=== PATIENT | male | born 1980 | race Caucasian/White ===

== ENCOUNTER 2024-05-22 23:17 | Inpatient (IN) | payer OTHER, SELFPAY ==
[2024-05-22 23:18] VITALS: BP 112/84; PULSE 106; RESP 18; TEMP 36.7; O2SAT 98; BMI 24.6
--- NOTE | 2024-05-22 23:47 | EX.ED.SAOD ---
HPI History of Present Illness Chief Complaint: ETOH Intox Informant: patient Narrative Narrative: Patient is a 43-year-old male with history of alcohol abuse and DTs presenting for concern of alcohol withdrawal. Patient has been drinking for the last few weeks (mostly beer) and lives in [place]. He is appear visiting his parents and will not be drinking why is here. He is concerned that he will going to alcohol withdrawal. He is interested in detox. He states he had 5 alcoholic beverages on the plane today on his way out. Has previously been in detox with [facility] before. I denies any physical complaints at this time. Does not feel like he is withdrawing right now but is worried that if he does not drink over the next day or 2 he will have a seizure. [facility] Medical History Former tobacco use Anxiety and depression History of seizure Pancreatitis Hypertension Home Medications ?Medication ?Instructions ?Recorded ?Last Taken ?Type ibuprofen 200 mg tablet (Advil) 200 mg PO Q6H PRN pain 11/14/22 Unknown History metoprolol succinate 25 mg 25 mg PO DAILY 11/14/22 Unknown History tablet,extended release 24 hr trazodone 50 mg tablet 50 mg PO DAILY 11/14/22 Unknown History melatonin 5 mg capsule mg 05/22/24 Unknown History sertraline 100 mg tablet 200 mg PO DAILY 05/22/24 Unknown History Allergy/AdvReac Type Severity Reaction Status Date / Time No Known Allergies Allergy Verified 05/22/24 23:24 Social History Smoking Status: Former smoker ROS ROS ED Constitutional Constitutional ED: Denies chills or fever(s) Eyes Eyes: Denies change in vision Cardiovascular Cardiovascular: Denies chest pain Respiratory/Chest Respiratory/Chest: Denies cough or dyspnea Gastrointestinal Gastrointestinal: Denies nausea or vomiting Musculoskeletal Musculoskeletal: Denies arthralgias or myalgias Neurologic Neurologic: Denies weakness Psychiatric Psychiatric: Reports other Details: Alcohol abuse ; Denies anxiety or depression EXAM Physical Exam Const Vital Signs: 05/22/24 23:18 05/23/24 00:18 05/23/24 00:54 Temperature 98.0 F 97.2 F L Temperature Source Temporal Pulse Rate 106 H 100 100 Respiratory Rate 18 16 Blood Pressure 112/84 H 115/72 Blood Pressure Mean 93 86 Pulse Ox 98 98 Oxygen Delivery Method Room Air Positive well nourished and well developed General Appearance ED: well developed and NAD HEENT Reports moist mucous membranes Eyes EOMs intact bilaterally Neck supple Chest Wall inspection of chest normal Resp normal respiratory effort Cardio Rate: tachycardic Extremity General Extremety ED: Negative for edema General Extremity: Negative for edema Neuro oriented x3 Sensorium / Orientation: alert Motor Exam: Negative for general weakness Psych mental status grossly normal and thought process normal Skin General Skin Exam: Negative for jaundice MDM MDM MDM Narrative Medical decision making narrative: Patient is evaluated for request of alcohol detox. Patient states he would not be drinking lives in [place] and is worried if he does not drink going alcohol withdrawal. Patient is counseled that his options are he can continue drinking he is not truly interested in detox or we can admit him for inpatient medical detox of alcohol. Patient states that he would like to proceed with detox. I will obtain medical screening labs. At this time I do not think patient is in acute alcohol withdrawal as he was drinking earlier today and has normal blood pressure and I do not think he needs any medication for withdrawal at this time. Lab work consistent with acute alcohol intoxication as well as positive benzodiazepine on his talk screen. Will be admitted to the hospital service, case discussed with Dr. Reid. Lab Data Labs: Laboratory Results - last 24 hr 05/23/24 00:16 Sodium 143 Potassium 3.6 Chloride 109 H Carbon Dioxide 27.0 Anion Gap 7 BUN 10 Creatinine 1.12 Estim Creat Clear Calc 91.42 Est GFR (MDRD) Af Amer 91 Est GFR (MDRD) Non-Af 75 BUN/Creatinine Ratio 8.9 L Glucose 93 Calcium 8.8 Total Bilirubin 0.40 AST 28 ALT 25 Alkaline Phosphatase 47 Total Protein 8.0 Albumin 4.6 Globulin 3.4 Albumin/Globulin Ratio 1.4 Urine Opiates Screen NEGATIVE Urine Methadone Screen NEGATIVE Ur Barbiturates Screen NEGATIVE Ur Phencyclidine Scrn NEGATIVE Ur Amphetamines Screen NEGATIVE MDMA (Ecstasy) Screen NEGATIVE U Benzodiazepines Scrn POSITIVE H Urine Cocaine Screen NEGATIVE U Cannabinoids Screen NEGATIVE Ur Drug Screen Comment Ethyl Alcohol 285.0 Discharge Plan Triage Chief Complaint: ETOH Intox ED Provider: Fani Hancock Dx/Rx/DC Orders Clinical Impression: Alcohol dependence with acute alcoholic intoxication Prescriptions: No Action metoprolol succinate 25 mg tablet extended release 24 hr 25 mg PO DAILY trazodone 50 mg tablet 50 mg PO DAILY ibuprofen [Advil] 200 mg tablet 200 mg PO Q6H PRN (Reason: pain) sertraline 100 mg tablet 200 mg PO DAILY melatonin 5 mg capsule Primary Care Provider: GARRETT DARDEN Referrals: NOT,DEFINED [Non-Staff] - Print Language: Yakut Disposition Disposition: Acute Care Hospital [facility]
[2024-05-23] VITALS (11 sets, daily range): BP systolic 98–149; BP diastolic 60–99; PULSE 72–100; RESP 16–18; TEMP 36.2–37; O2SAT 95–100; BMI 24.7
[2024-05-23 00:43] LABS: Amphetamine Urine VISTA NEGATIVE (<1000 ng/mL); Barbiturate Urine VISTA NEGATIVE (< 200 ng/mL); Benzodiazepine Urine VISTA POSITIVE (< 200 ng/mL); Cocaine Urine VISTA NEGATIVE (< 300 ng/mL); Ecstacy Urine VISTA NEGATIVE (< 500 ng/mL); Methadone Urine VISTA NEGATIVE (< 300 ng/mL); PCP Urine VISTA NEGATIVE (< 25 ng/mL); THC Urine VISTA NEGATIVE (< 50 ng/mL); Vista UDS pH Range 5
[2024-05-23 00:49] LABS: ALB/GLOB Ratio 1.4 RATIO (0.9-2.4); AST(SGOT) 28 U/L (15-37); Alanine Aminotransfer ALT/SGPT 25 U/L (16-61); Albumin, Serum 4.6 g/dL (3.2-5.0); Alkaline Phosphatase 47 U/L (45-117); Anion Gap 7 (5-15); BUN 10 mg/dL (7-18); BUN/Creat Ratio 8.9 RATIO (10-20); Calcium,Total 8.8 mg/dL (8.5-10.1); Chloride 109 mmol/L (98-107); Creatinine, Serum 1.12 mg/dL (0.70-1.30); EST Glomerular Filtration Rate 75 mL/min (>60); Est Glom Filt Rate - Afr Amer 91 mL/min (>60); Estimated Creatinine Clearance 91.42 ml/min; Globulin 3.4 g/dL (2.2-4.2); Glucose 93 mg/dL (74-106); Potassium 3.6 mmol/L (3.5-5.1); Sodium Level 143 mmol/L (136-145)
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
[2024-05-23 00:58] LABS: Absolute Lymphocyte Count 2.26 X10^3/uL (0.83-4.51); Absolute Neutrophil Count 2.7 X10^3/uL (2.0-7.7); Basophil# 0.03 X10^3/uL; Basophil% 0.5 % (0-1); Eosinophil# 0.09 X10^3/uL; Eosinophils% 1.6 % (0-5); Hematocrit 39.5 % (40-54); Hemoglobin 13.4 g/dL (13.0-16.5); Lymphocyte # 2.26 X10^3/ul (0.83-4.51); Lymphocyte % 41.2 % (19-41); Mean Corp Hgb Conc 33.9 g/dL (32-36); Mean Corpuscular Volume 88.4 fL (80-94); Mean Platelet Vol. 9.7 fl (6.2-12.0); Monocyte# 0.41 X10^3/uL; Monocyte% 7.5 % (0-10); NRBC Flagged by Analyzer 0 % (0-5); Neutrophil # 2.68 X10^3/uL (2.7-7.7); Neutrophil % 48.8 % (47-70); Platelet Count 187 K/mm3 (150-450); RBC Distribution Width CV 14.9 % (11.6-14.6); RBC Distribution Width SD 48.5 fl (35.1-43.9); Red Blood Count 4.47 M/mm3 (4.6-6.2); White Blood Count 5.5 K/mm3 (4.4-11.0)
[2024-05-23 01:23] LABS: Magnesium 2.3 mg/dL (1.6-2.6); Phosphorus 2.9 mg/dL (2.5-4.9)
[2024-05-23] MEDS: Lactated Ringers 1,000 ML 125 ML IV (02:00)
[2024-05-23] MEDS: Ondansetron 8 MG Tablet PO (02:00)
[2024-05-23] MEDS: traZODone 100 MG Tablet PO ×2 (02:00→20:41)
[2024-05-23] MEDS: Phenobarbital 32.4 MG Tablet 64.8 MG PO ×6 (02:00→20:46)
[2024-05-23] MEDS: 0.9% Saline Lock 10 ML Syringe IV (02:00)
[2024-05-23] MEDS: hydrOXYzine PAM 25 MG Capsule 50 MG PO ×3 (02:08→20:46)
[2024-05-23] MEDS: Folic Acid 1 MG Tablet PO (08:23)
[2024-05-23] MEDS: Thiamine Hydrochloride 100 MG Tablet PO (08:23)
--- NOTE | 2024-05-23 08:32 | NURSING ---
called family and asked them if they could bring in his non formulary med.
[2024-05-23] MEDS: Sertraline 100 MG Tablet 200 MG PO (08:35)
--- NOTE | 2024-05-23 11:52 | ADDICTION ---
This software writer met with PT to conduct ASAM, MSE, AUDIT, DUDIT assessments and to plan for d/c. PT A+Ox4 and participated actively. All assessments completed. PT plans to f/u with follow-up treatment services at [facility], however he plans to go collect his things in [place] upon d/c. This worker discussedv with pt the option of Vivitrol to help with cravings while he is transitioning from [place] to [place].Pt is interested and meets criteria for the shot. PT did not indicate a need for transportation post d/c from [facility].
--- NOTE | 2024-05-23 18:19 | PCM.HOSP.N ---
Hospitalist Note Patient was seen and examined today, he is alert and appropriate, he does not appear anxious or nervous. We talked about the program here, he questions whether he could possibly be discharged this weekend if he remains medically stable and I told him that was a possibility. He has been to [facility] before, he told me today that he would prefer to do an outpatient program. Patient denies any chronic medical problems, heart rate and rhythm was regular, lungs were clear, again patient was alert and oriented and appropriate.
[2024-05-23] MEDS: Metoprolol(XL)Succ 25 MG Tablet PO (20:41)
[2024-05-23] MEDS: PIMOZIDE 1 MG PO (20:42)
[2024-05-24] MEDS: hydrOXYzine PAM 25 MG Capsule 50 MG PO ×4 (01:33→22:15)
[2024-05-24] MEDS: Phenobarbital 32.4 MG Tablet 64.8 MG PO ×3 (01:33→10:03)
[2024-05-24 01:37] VITALS: BP 134/93; PULSE 64; RESP 16; TEMP 36.4; O2SAT 100
[2024-05-24 07:45] VITALS: O2SAT 94
[2024-05-24 08:59] VITALS: BP 119/83; PULSE 72; RESP 18; TEMP 36.4; O2SAT 98
[2024-05-24 09:03] VITALS: PULSE 72
[2024-05-24] MEDS: Thiamine Hydrochloride 100 MG Tablet PO (09:04)
[2024-05-24] MEDS: Sertraline 100 MG Tablet 200 MG PO (09:04)
[2024-05-24] MEDS: Folic Acid 1 MG Tablet PO (09:04)
[2024-05-24] MEDS: Multivitamins,Ther W-Minerals Tablet 1 TABLET PO (09:04)
[2024-05-24] MEDS: Phenobarbital 32.4 MG Tablet PO ×3 (14:00→22:07)
[2024-05-24 15:11] VITALS: BP 140/98; PULSE 81; RESP 18; TEMP 37.1; O2SAT 100
--- NOTE | 2024-05-24 15:25 | PCM.PN.HOSP ---
Subjective Subjective Patient was seen and examined today, he does not complain of any nervousness or tremor. I talked with him about decreasing his dose of phenobarbital, he is okay with this. Objective Data Objective Data Vital Signs: Vital Signs Temp Pulse Resp BP Pulse Ox O2 Del Method 98.7 F 81 18 140/98 H 100 Room Air 05/24/24 15:11 05/24/24 15:11 05/24/24 15:11 05/24/24 15:11 05/24/24 15:11 05/24/24 15:11 Oxygen Delivery Method Room Air Weight: 82.6 kg Body Mass Index (BMI) 24.7 Intake & Output: Intake and Output for Last 24 Hours 05/22/24 05/23/24 05/24/24 23:59 23:59 23:59 Intake Total 1000 / 1000 Balance 1000 / 1000 Lab / Micro Data 05/23/24 00:16 05/23/24 00:16 Physical Exam Const alert, oriented x3, no apparent distress, average body habitus and healthy appearing General Appearance: cooperative, well kempt and well developed Orientation / Consciousness: awake, oriented to person, oriented to place and oriented to time HEENT normocephalic and moist oral mucous membranes Eyes PERRL, EOMs intact bilaterally and conjunctivae normal Neck supple, no JVD, thyroid normal and no carotid bruits General: trachea midline Resp normal respiratory effort, no retractions, no use of accessory muscles and clear to auscultation bilaterally Auscultation: Negative for rales, rhonchi or wheezes Cardio regular rate, regular rhythm, S1 normal heart sound, S2 normal heart sound, no murmurs, no rub and no gallops GI normal to inspection, nondistended, normoactive bowel sounds, soft to palpation, non-tender and non-distended Extremity no clubbing, cyanosis or edema Skin no rashes or lesions noted General Skin Exam: no breakdown Neuro oriented x3, CN's II-XII intact bilaterally, no focal motor deficits and no sensory deficits noted Sensorium / Orientation: awake and alert Speech: speech normal Psych affect normal Assessment & Plan Assessment/Plan (1) Alcohol dependence with acute alcoholic intoxication: PLAN: Plan 1. Acute alcohol withdrawal-patient has asymptomatic at this time on phenobarbital, again I have elected to decrease his phenobarbital dosage. #2 chronic alcoholism-complicates care, management, recovery, and prognosis #3 chronic anxiety and depression-patient will continue on his present medication #4 essential hypertension-patient will remain on metoprolol #5 OCD-patient according to nursing is not a medication called pimozide Total clinical time spent by myself addressing the patient's medical issues, reviewing all of his data, and collaborating with patient's care team: 35 minutes Charges/Coding Visit Charges Inpatient E&M: 84289 Subs Hosp L2
[2024-05-24 20:35] VITALS: BP 136/99; PULSE 76; RESP 18; TEMP 37.2; O2SAT 100
[2024-05-24] MEDS: Gabapentin 300 MG Capsule PO (20:41)
[2024-05-24] MEDS: PIMOZIDE 1 MG PO (22:07)
[2024-05-24] MEDS: traZODone 100 MG Tablet PO (22:08)
[2024-05-25 04:40] VITALS: BP 121/79; PULSE 67; RESP 18; TEMP 36.9; O2SAT 99
[2024-05-25 10:00] VITALS: BP 127/90; PULSE 71; RESP 16; TEMP 36.6; O2SAT 100
[2024-05-25] MEDS: Phenobarbital 32.4 MG Tablet PO ×2 (10:14→13:41)
[2024-05-25 10:15] VITALS: BP 127/90; PULSE 71
[2024-05-25] MEDS: Sertraline 100 MG Tablet 200 MG PO (10:15)
[2024-05-25] MEDS: Metoprolol(XL)Succ 25 MG Tablet PO (10:15)
[2024-05-25] MEDS: Multivitamins,Ther W-Minerals Tablet 1 TABLET PO (10:15)
[2024-05-25] MEDS: Thiamine Hydrochloride 100 MG Tablet PO (10:16)
[2024-05-25] MEDS: Folic Acid 1 MG Tablet PO (10:16)
--- NOTE | 2024-05-25 10:16 | DCINST_ITS ---
Discharge Instructions Diet Discharge Diet: No restrictions Activity Discharge Activity: Return to Normal Activity Weight Bearing Status: Full weight bearing Follow Up Care Test Results: Test results from this visit will be discussed in further detail at your follow- up appointment, if applicable. Discharge Plan Admission Admit Date/Time: 05/23/24 00:51 Primary Reason for Your Visit: Alcohol detox Attending Provider: Norbert Sandoval Primary Care Provider: GARRETT DARDEN Consulting Providers: Kitty Reid Instructions Additional Instructions / Restrictions: Contact [facility] on 05/27/2024 for follow-up instructions Discharge Orders/Prescriptions Prescriptions: New hydroxyzine pamoate 25 mg Capsule 50 mg PO Q4H PRN PRN (Reason: mild anxiety) Qty: 30 0RF phenobarbital 32.4 mg Tablet 32.4 mg PO 2XD Qty: 4 0RF Continued metoprolol succinate 25 mg tablet extended release 24 hr 25 mg PO DAILY trazodone 50 mg tablet 50 mg PO DAILY ibuprofen [Advil] 200 mg tablet 200 mg PO Q6H PRN (Reason: pain) sertraline 100 mg tablet 200 mg PO DAILY melatonin 5 mg capsule 5 mg PO QHS meclizine 25 mg tablet 25 mg PO TID PRN PRN (Reason: vertigo) Zepbound 10 mg/0.5 mL pen injector 10 mg subcut QWEEK pimozide 1 mg tablet 1 mg PO QHS Referrals / Follow Up: GARRETT DARDEN [Other] NOT,DEFINED [Non-Staff] - Disposition Disposition (needs filled in before D/C Order can be placed): Home, Self Care
--- NOTE | 2024-05-25 10:26 | PCM.DC.SUM ---
Providers Date of Admission: 05/23/24 Date of Discharge: 05/25/24 Primary Care Physician: GARRETT DARDEN Reason For Visit: ETOH DETOX Diagnosis Discharge Diagnosis (1) Alcohol dependence with acute alcoholic intoxication: Status: Acute Code(s): F10.229 - Alcohol dependence with intoxication, unspecified Plan 1. Acute alcohol withdrawal-patient has asymptomatic at this time on phenobarbital, again I have elected to decrease his phenobarbital dosage. #2 chronic alcoholism-complicates care, management, recovery, and prognosis #3 chronic anxiety and depression-patient will continue on his present medication #4 essential hypertension-patient will remain on metoprolol #5 OCD-patient according to nursing is not a medication called pimozide Total clinical time spent by myself addressing the patient's medical issues, reviewing all of his data, and collaborating with patient's care team: 35 minutes Medications at Discharge Home Medications ibuprofen 200 mg tablet (Advil) 200 mg PO Q6H PRN pain 11/14/22 metoprolol succinate 25 mg tablet,extended release 24 hr 25 mg PO DAILY 11/14/22 trazodone 50 mg tablet 50 mg PO DAILY 11/14/22 melatonin 5 mg capsule 5 mg PO QHS sleep 05/22/24 sertraline 100 mg tablet 200 mg PO DAILY 05/22/24 meclizine 25 mg tablet 25 mg PO TID PRN PRN vertigo 05/23/24 pimozide 1 mg tablet 1 mg PO QHS ocd 05/23/24 tirzepatide (weight loss) 10 mg/0.5 mL subcutaneous pen injector (Zepbound) 10 mg subcut QWEEK weight loss 05/23/24 hydroxyzine pamoate 25 mg capsule 50 mg (2 x 25 mg) PO Q4H PRN PRN mild anxiety #30 caps 05/25/24 phenobarbital 32.4 mg tablet 32.4 mg PO 2XD #4 tabs 05/25/24 Hospital Course Operations None Procedures None Summary of Care Provided Minutes Spent on Discharge: 30 Hospital Course: This 43-year-old white male was seen in the emergency room at [facility] requesting services for alcohol detox, patient was admitted to [place] [address] and orders were entered using the alcohol detox order set, he was seen in consultation by addiction social media community manager. Patient did not have any evidence of DTs while in the hospital. On 05/25/2024, patient was seen and examined: On examination he appeared in good health and spirits. Vital signs as documented. Skin warm and dry and without overt rashes. Neck without JVD, neck was supple, trachea midline, thyroid was normal. Lungs clear bilaterally, normal air movement was noted. Heart exam notable for regular rhythm, normal sounds and absence of murmurs, rubs or gallops. Abdomen unremarkable and without evidence of organomegaly, masses, or abdominal aortic enlargement. Bowel sounds are present, abdomen is not distended. Extremities nonedematous, no cyanosis was noted, no clubbing was noted. Neuro: Cranial nerves II through XII are grossly intact, no focal motor deficits were noted, sensation to light touch and pinprick intact, motor exam 5/5 throughout. Psych: Patient is alert and oriented x3, he does not appear anxious or depressed, he does not appear agitated. Patient appears stable for discharge home on 05/25/2024. Weight / BMI Weight Weight: 82.6 kg Body Mass Index (BMI) 24.7 ABG / Lab / Microbiology Data 05/23/24 00:16 05/23/24 00:16 D/C Instructions Discharge Diet: No restrictions Weight Bearing Status: Full weight bearing Meaningful Use Info Meaningful Use Meaningful Use Diagnoses (Choose all that apply): None applicable Ischemic Stroke Statin Dosing Therapy Reference: STATIN DOSE THERAPY REFERENCE: * Patients > 75 years receive moderate or high dose statin therapy. * Patients 75 years or YOUNGER should receive HIGH intensity statin dose unless contraindicated. You will be required to document reason for non-treatment if statin daily dose does not meet guidelines. HIGH DOSE STATIN THERAPY DAILY Atorvastatin > than or = to 40 mg Rosuvastatin > than or = to 20 mg Amlodipine + Atorvastatin > than or = to 2.5/40 mg Ezetimibe + Simvastatin 10/80 mg Simvastatin 80mg Discharge Plan Admission Admit Date/Time: 05/23/24 00:51 Primary Reason for Your Visit: Alcohol detox Attending Provider: Norbert Sandoval Primary Care Provider: GARRETT DARDEN Consulting Providers: Kitty Reid Instructions Additional Instructions / Restrictions: Contact [facility] on 05/27/2024 for follow-up instructions Discharge Orders/Prescriptions Prescriptions: New hydroxyzine pamoate 25 mg Capsule 50 mg PO Q4H PRN PRN (Reason: mild anxiety) Qty: 30 0RF phenobarbital 32.4 mg Tablet 32.4 mg PO 2XD Qty: 4 0RF Continued metoprolol succinate 25 mg tablet extended release 24 hr 25 mg PO DAILY trazodone 50 mg tablet 50 mg PO DAILY ibuprofen [Advil] 200 mg tablet 200 mg PO Q6H PRN (Reason: pain) sertraline 100 mg tablet 200 mg PO DAILY melatonin 5 mg capsule 5 mg PO QHS meclizine 25 mg tablet 25 mg PO TID PRN PRN (Reason: vertigo) Zepbound 10 mg/0.5 mL pen injector 10 mg subcut QWEEK pimozide 1 mg tablet 1 mg PO QHS Referrals / Follow Up: GARRETT DARDEN [Other] NOT,DEFINED [Non-Staff] - Disposition Disposition (needs filled in before D/C Order can be placed): Home, Self Care Charges/Coding Visit Charges Inpatient E&M: 68643 Disch Hosp
[2024-05-25] MEDS: hydrOXYzine PAM 25 MG Capsule 50 MG PO (10:33)
[2024-05-25] MEDS: Naltrexone Microspheres 380 MG SYRINGE IM (13:04)
[2024-05-25] MEDS: Vivitrol ID Card 1 EACH MC (13:09)
[2024-05-25] MEDS: Vivitrol Administration Needles 1 EACH MC (13:09)
== END 2024-05-25 13:53 | disposition home or self-care (01) | DRG 897 ==
LOC: ED 05-23 00:56 → MS3 05-23 01:06
PROVIDERS: Admitting Provider Family Medicine; Emergency Provider Emergency Medicine; Visit Provider Internal Medicine
DX: F10.239 Alcohol dependence with withdrawal, unspecified (principal); F32.A Depression, unspecified; I10 Essential (primary) hypertension; F41.9 Anxiety disorder, unspecified; Z87.891 Personal history of nicotine dependence; Z79.899 Other long term (current) drug therapy; Y90.8 Blood alcohol level of 240 mg/100 ml or more
CPT/HCPCS: 80053; 80307; 82077; 83735; 84100; 85025; 99284; J7120; A4216

== ENCOUNTER 2025-08-30 15:05 | Observation (INO) | payer OTHER, SELFPAY ==
[2025-08-30 15:06] VITALS: BP 142/97; PULSE 106; RESP 18; TEMP 37.2; O2SAT 100; BMI 22.4
[2025-08-30 15:34] LABS: Hematocrit 39.1 % (40-54); Hemoglobin 12.9 g/dL (13.0-16.5); Immature Granulocytes Count 0.020 X10^3/uL (0.0-0.0); Mean Corp Hgb Conc 33.0 g/dL (32-36); Mean Corpuscular Volume 92.2 fL (80-94); Mean Platelet Vol. 9.3 fl (6.2-12.0); NRBC Flagged by Analyzer 0 % (0-5); Platelet Count 241 K/mm3 (150-450); RBC Distribution Width CV 15.0 % (11.6-14.6); RBC Distribution Width SD 50.7 fl (35.1-43.9); Red Blood Count 4.24 M/mm3 (4.6-6.2); White Blood Count 7.3 K/mm3 (4.4-11.0)
[2025-08-30 15:41] LABS: Prothrombin Time (Protime)PT. 13.1 SECONDS (11.7-14.9)
[2025-08-30 16:06] VITALS: BP 136/65; PULSE 93; RESP 22; O2SAT 100
--- NOTE | 2025-08-30 16:09 | EDS_ITS ---
HPI History of Present Illness Chief Complaint: ETOH Intox Narrative Narrative: 44-year-old male states he is an alcoholic and presents for detox. He relates history that he has been through the detox program here at the hospital a few years ago. He currently lives in [place], but states he is visiting his parents here. He went through detox around 5 months ago there and had 4 months of sobriety, but broke up with his girlfriend and started drinking again. He drinks at least a pint of vodka daily. His last drink was last evening. He has been drinking daily for the last few weeks to a month and a half. He has past medical history of other addiction for which he takes Suboxone. He does have past medical history of anxiety. He states he feels shaky. He has had diarrhea. [facility] Medical History Alcohol dependence with acute alcoholic intoxication Admitted to alcohol detoxification center Former tobacco use Anxiety and depression History of seizure Pancreatitis Hypertension Home Medications Medication Instructions Recorded Last Taken Type ibuprofen 200 mg tablet (Advil) 200 mg PO Q6H PRN pain 11/14/22 Unknown History melatonin 5 mg capsule 5 mg PO QHS sleep 05/22/24 U nknown History buprenorphine 8 mg-naloxone 2 mg 1 ea sublingual DAILY 08/30/25 Unknown History sublingual film buspirone 15 mg tablet 30 mg PO BID 08/30/25 Unknow n History chlordiazepoxide HCl 5 mg capsule PO 08/30/25 Unknown History gabapentin 300 mg capsule 600 mg PO TID 08/30/25 Unkno wn History hydroxyzine pamoate 25 mg capsule 50 mg PO QHS PRN mil d anxiety 08/30/25 Unknown History pimozide 2 mg tablet 2 mg PO QHS 08/30/25 Unknown History quetiapine 50 mg tablet 150 mg PO QHS 08/30/25 Unkno wn History trazodone 100 mg tablet 100 mg PO QHS 08/30/25 Unkno wn History vortioxetine 10 mg tablet 10 mg PO DAILY 08/30/25 Unkn own History (Trintellix) Allergy/AdvReac Type Severity Reaction Status Date / Time No Known Allergies Allergy Verified 08/30/25 15:06 Family History Father Heart disease Mother No problems noted. Surgical History No history of previous surgery Social History household members: significant other Smoking Status: Former smoker how long ago did patient quit smoking: Quit 15-16 yrs prior, smoked 1/2 ppd since 14 until quit. alcohol intake: current alcohol intake frequency: 3 or more drinks per day details: 10-11 beers daily, occasionally hard liquor. substance use type: does not use ROS ROS ED ROS Narrative Review of systems positive for diarrhea and shakiness, alcohol addiction desire for detox. No exacerbating or alleviating factors. EXAM Physical Exam Narrative Exam Narrative: Afebrile. Vital signs noted. Nontoxic-appearing. Cardiovascular examination reveals mild tachycardia. Lungs clear to auscultation bilaterally. Abdomen is soft and nontender with positive bowel sounds. No guarding or rebound. Neurological examination nonfocal, nonlateralizing. Awake, alert, interactive, cooperative. Const Vital Signs: 08/30/25 15:06 08/30/25 16:06 Temperature 98.9 F Temperature Source Oral Pulse Rate 106 H 93 Respiratory Rate 18 22 H Blood Pressure 142/97 H 136/65 H Blood Pressure Mean 112 88 Pulse Ox 100 100 Oxygen Delivery Method Room Air Room Air MDM MDM MDM Narrative Medical decision making narrative: I do not feel differential diagnosis is applicable in this case. Concern would be for withdrawal from alcohol. Initially patient was tachycardic at 106 bpm. He was administered Ativan because in review of his medication list, he takes trazodone 100 mg every evening. I reviewed his laboratory work and he has normal white count of 7.3 with hemoglobin 12.9, hematocrit 39.1, platelet count is normal at 241. Coagulation studies are negative. CMP shows normal AST, ALT, and alk phos. Ethyl alcohol is less than 10.1. Nursing protocol labs had been entered in triage. While urine for drugs of abuse is still pending, patient will be given phenobarbital as well. Patient discussed with the hospitalist for admission for detox from alcohol. I discussed patient with Dr. Almanza who will admit the patient. Disposition is admit to the general medical floor in stable condition. History & Record Review Discussion w/independent historian: Patient Additional record(s) reviewed:: Prior ED visit Lab Data Attestation: I reviewed the patient's lab results. Labs: Laboratory Results - last 24 hr 08/30/25 15:20 WBC 7.3 RBC 4.24 L Hgb 12.9 L Hct 39.1 L MCV 92.2 MCH 30.4 MCHC 33.0 RDW Std Deviation 50.7 H RDW Coeff of Maxime 15.0 H Plt Count 241 MPV 9.3 Immature Gran % (Auto) 0.300 Neut % (Auto) 80.3 H Lymph % (Auto) 13.5 L Page % (Auto) 4.9 Eos % (Auto) 0.5 Baso % (Auto) 0.5 Absolute Neuts (auto) 5.9 Absolute Lymphs (auto) 0.99 Nucleated RBC % 0 PT 13.1 INR 1.0 Sodium 141 Potassium 4.0 Chloride 101 Carbon Dioxide 29.2 Anion Gap 11 BUN 12 Creatinine 0.77 Estim Creat Clear Calc 126.82 Est GFR (MDRD) Non-Af 112 BUN/Creatinine Ratio 15.6 Glucose 127 H Calcium 9.9 Total Bilirubin 0.39 AST 19 ALT 19 Alkaline Phosphatase 59 Total Protein 7.4 Albumin 4.7 Globulin 2.7 Albumin/Globulin Ratio 1.8 Ethyl Alcohol < 10.1 Management Discussion w/another healthcare provider: Hospitalist (Dr. Almanza) Discharge Plan Dx/Rx/DC Orders Clinical Impression: Desire for detoxification, Alcoholism Disposition Disposition: Acute Care Hospital [facility]
[2025-08-30 16:20] LABS: Alcohol, Blood (Medical)-Serum < 10.1 mg/dL (<=10.0)
[2025-08-30 16:22] LABS: AST(SGOT) 19 U/L (<=37); Alanine Aminotransfer ALT/SGPT 19 U/L (<=46); Albumin, Serum 4.7 g/dL (3.5-5.0); Alkaline Phosphatase 59 U/L (40-129); Anion Gap 11 (5-15); BUN 12 mg/dL (4-19); BUN/Creat Ratio 15.6 RATIO (10-20); Calcium,Total 9.9 mg/dL (7.6-11.0); Carbon Dioxide 29.2 mmol/L (21.0-32.0); Chloride 101 mmol/L (98-108); Estimated Creatinine Clearance 126.82 ml/min (50-250); Globulin 2.7 g/dL (2.2-4.2); Glucose 127 mg/dL (70-99); Potassium 4.0 mmol/L (3.3-5.1)
--- OUTSIDE RECORDS SUMMARY | 2025-08-30 16:23 | XMS RPT_ITS | CCD ---
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 [facility] [address] [place], [address] VISTA UDS PH 5 Normal [facility] Comment on above: Performed By: #### L 500.4050, L505.5000, L501.9100 #### [facility] [address] [place], [address] Emergency Department Summary on 05-22-2024 Emergency Department Summary [facility] Medical Records Department [address] [place] [address] Emergency Department Summary 05/22/24 MR#: [id number] Acct: [id number] Name: SINDHU PALMER Rep #: [id number] : 1980 43 From: Fani Hancock DO PCP: GARRETT DARDEN Status:REG ER Location: ED HPI History of Present Illness Chief Complaint: ETOH Intox Informant: patient Narrative Narrative: Patient is a 43-year-old male with history of alcohol abuse and DTs presenting for concern of alcohol withdrawal. Patient has been drinking for the last few weeks (mostly beer) and lives in [place]. He is appear visiting his parents and will not be drinking why is here. He is concerned that he will going to alcohol withdrawal. He is interested in detox. He states he had 5 alcoholic beverages on the plane today on his way out. Has previously been in detox with 180 before. I denies any physical complaints at this time. Does not feel like he is withdrawing right now but is worried that if he does not drink over the next day or 2 he will have a seizure. [facility] Medical History Former tobacco use Anxiety and depression History of seizure Pancreatitis Hypertension Home Medications ???Medication ???Instructions ???Recorded ???Last Taken ???Type ibuprofen 200 mg tablet (Advil) 200 mg PO Q6H PRN pain 11/14/22 Unknown History metoprolol succinate 25 mg 25 mg PO DAILY 11/14/22 Unknown History tablet,extended release 24 hr trazodone 50 mg tablet 50 mg PO DAILY 11/14/22 Unknown History melatonin 5 mg capsule mg 05/22/24 Unknown History sertraline 100 mg tablet 200 mg PO DAILY 05/22/24 Unknown History Allergy/AdvReac Type Severity Reaction Status Date / Time No Known Allergies Allergy Verified 05/22/24 23:24 Social History Smoking Status: Former smoker ROS ROS ED Constitutional Constitutional ED: Denies chills or fever(s) Eyes Eyes: Denies change in vision Cardiovascular Cardiovascular: Denies chest pain Respiratory/Chest Respiratory/Chest: Denies cough or dyspnea Gastrointestinal Gastrointestinal: Denies nausea or vomiting Musculoskeletal Musculoskeletal: Denies arthralgias or myalgias Neurologic Neurologic: Denies weakness Psychiatric Psychiatric: Reports other Details: Alcohol abuse ; Denies anxiety or depression EXAM Physical Exam Const Vital Signs: 05/22/24 23:18 05/23/24 00:18 05/23/24 00:54 Temperature 98.0 F 97.2 F L Temperature Source Temporal Pulse Rate 106 H 100 100 Respiratory Rate 18 16 Blood Pressure 112/84 H 115/72 Blood Pressure Mean 93 86 Pulse Ox 98 98 Oxygen Delivery Method Room Air Positive well nourished and well developed General Appearance ED: well developed and NAD HEENT Reports moist mucous membranes Eyes EOMs intact bilaterally Neck supple Chest Wall inspection of chest normal Resp normal respiratory effort Cardio Rate: tachycardic Extremity General Extremety ED: Negative for edema General Extremity: Negative for edema Neuro oriented x3 Sensorium / Orientation: alert Motor Exam: Negative for general weakness Psych mental status grossly normal and thought process normal Skin General Skin Exam: Negative for jaundice MDM MDM MDM Narrative Medical decision making narrative: Patient is evaluated for request of alcohol detox. Patient states he would not be drinking lives in [place] and is worried if he does not drink going alcohol withdrawal. Patient is counseled that his options are he can continue drinking he is not truly interested in detox or we can admit him for inpatient medical detox of alcohol. Patient states that he would like to proceed with detox. I will obtain medical screening labs. At this time I do not think patient is in acute alcohol withdrawal as he was drinking earlier today and has normal blood pressure and I do not think he needs any medication for withdrawal at this time. Lab work consistent with acute alcohol intoxication as well as positive benzodiazepine on his talk screen. Will be admitted to the hospital service, case discussed with Dr. Reid. Lab Data Labs: Laboratory Results - last 24 hr 05/23/24 00:16 Sodium 143 Potassium 3.6 Chloride 109 H Carbon Dioxide 27.0 Anion Gap 7 BUN 10 Creatinine 1.12 Estim Creat Clear Calc 91.42 Est GFR (MDRD) Af Amer 91 Est GFR (MDRD) Non-Af 75 BUN/Creatinine Ratio 8.9 L Glucose 93 Calcium 8.8 Total Bilirubin 0.40 AST 28 ALT 25 Alkaline Phosphatase 47 Total Protein 8.0 Albumin 4.6 Globulin 3.4 Albumin/Globulin Ratio 1.4 Urine Opiates Screen NEGATIVE Urine Methadone Screen NEGATIVE Ur Barbiturates S (more content not included)... Normal [facility] CNOVon 03-11-2024 CN Office Visit (UCWSTR ) SINDHU PALMER ([id number]) 1980 M Date Time Provider Department 03/11/24 12:30 PM DESMOND WILSON [facility] During your visit today, we recorded the following information about you: Temperature Pulse Respiration Blood pressure 96.9 degrees 77/minute 21/minute 100/64 Weight 86.2 kg Desmond Wilson MD 03/11/2024 1:17 PM Signed Patient presents with: Sore Throat: X2 days HPI: Feeling sore throat for 2-3 days, worse today. He is here from [place]. Positive symptoms: Sore throat, little rhinorrhea/Cough, Negative symptoms: Fever, Chills, OTC: Ibuprofen PAST MEDICAL HISTORY Diagnosis Date Depression Takes metoprolol for hypertension, but BP has been low recently since losing weight. MEDICATIONS: Current Outpatient Medications Medication Sig metoprolol succinate ER (TOPROL XL) 50 mg 24 hr tablet Take 1 tablet by mouth every 12 hours. sertraline (ZOLOFT) 100 mg tablet Take 1 tablet by mouth every afternoon. traZODone (DESYREL) 50 mg tablet Take 100 mg by mouth daily at bedtime. ZEPBOUND 10 mg/0.5 mL pen injector INJECT 10 MG SUBCUTANEOUSLY ONE TIME PER WEEK No current facility-administered medications for this visit. ALLERGIES: ALLERGIES No Known Allergies VITALS: BP 100/64 Pulse 77 Temp 36.1 ?C (96.9 ?F) Resp 21 Wt 86.2 kg (190 lb 0.6 oz) SpO2 99% PHYSICAL EXAM: GEN: Pleasant, in no acute distress. HEENT: PERRL, EOMI, conjunctiva clear Ears: canals clear. TMs without erythema, bulge, or effusion Sinuses: non-tender frontal sinus, non-tender maxillary sinuses Throat: moist mucous membranes, mild erythema, with small soft palate ulcerations, no exudate Neck: supple, no thyromegaly, no lymphadenopathy HEART: regular rate and rhythm, no murmurs LUNGS: clear to auscultation, no wheezes or crackles, no increased WOB ASSESSMENT/PLAN: 1. Sore throat - ICD9: 462, ICD10: J02.9 - STREP A MOLECULAR (POC) - negative home COVID test negative today. He would like confirmation- COVID NAAT, UPPER RESPIRATORY, ROUTINE. Reports normal kidney function through PCP last month. He would like paxlovid if postive. Will need to hold trazodone which he takes as a sleep aid. Desmond Wilson MD Allergies As of Date: 03/11/2024 (No Known Allergies) Date Reviewed: 03/11/2024 Reviewed by: Dyana Melo MA - Fully Assessed Reason for Visit: Sore Throat [200] Cmt: X2 days Primary Visit Diagnosis:Sore throat [J02.9] Order(s):STREP A MOLECULAR (POC) [3537810] Order #: [id number]. #:[id number] COVID NAAT, UPPER RESPIRATORY, ROUTINE [SQCOVID] Order #: [id number]. #:[id number] Prescriptions as of 03/11/2024 - metoprolol succinate ER (TOPROL XL) 50 mg 24 hr tablet Take 1 tablet by mouth every 12 hours. - sertraline (ZOLOFT) 100 mg tablet Take 1 tablet by mouth every afternoon. - traZODone (DESYREL) 50 mg tablet Take 100 mg by mouth daily at bedtime. - ZEPBOUND 10 mg/0.5 mL pen injector INJECT 10 MG SUBCUTANEOUSLY ONE TIME PER WEEK Problem List As Of Date: 03/11/2024 (None) Encounter Status:Closed by DESMOND WILSON on 03/11/24 Normal [facility] COVID NAAT, UPPER RESPIRATOR Y, ROUTINEon 03-11-2024 SARS-CoV-2 (COVID-19) RNA SAM+probe Ql (Resp) Not detected See comment [facility] Comment on above: The method used is R T-PCR or an equivalent NAAT method. Reference Range (the expected result in uninfected individuals): Not detected SARS-CoV-2 (COVID-19) RNA NA A+probe Ql (Resp)on 03-11-2024 Interpretation and review of laboratory results Normal [facility] For upper respirator y tract samples, this test has been authorized by FDA under Emergenecy Use Authorization (EUA). For lower respiratory tract samples, this test was developed and its performance characteristics determined by [facility]'s [facility] ([facility] It has not been cleared or approved by the FDA. -[facility] is regulated under CLIA as qualified to perform high-complexity testing. This test is used for clinical purposes. It should not be regarded as investigational or for research. Test performed by [facility], [facility] Laboratory Medicine [place], [address] [place] [address]. [facility] SARS-CoV-2 RNA Resp Ql SAM+p robeon 03-11-2024 SARS-CoV-2 (COVID-19) RNA SAM+probe Ql (Resp) COVID 19 RESULT: Not detected The method used is RT-PCR or an equivalent NAAT method. Reference Range (the expected result in uninfected individuals): Not detected Normal [facility] Comment on above: Performed By: #### 9 [id number] #### [facility] [place] [id number] [address] [place] [address] [place] STREP A MOLECULAR (POC)on Procedural Control Valid [facility] Strep A (POCT) Negative Negative [facility] Vital Signs Date Time Vital Sign Value Performing Clinician Faci lity 06-08-2024 14:25-0400 Body temperature 98.29 [degF] Lakesha SMITH Work Phone: [facility] 06-08-2024 14:25-0400 Body weight 83.3 kg Lakesha SMITH Work Phone: [facility] 06-08-2024 14:25-0400 Diastolic blood pressure 100 mm[Hg] Lakesha SMITH Work Phone: [facility] 06-08-2024 14:25-0400 Heart rate 105 /min Krislyn Aberegg PA Work Phone: [facility] 06-08-2024 14:25-0400 Respiratory rate 21 /min Krislyn Aberegg PA Work Phone: [facility] 06-08-2024 14:25-0400 SaO2% (BldA) [Mass fraction] 99 % Krislyn Aberegg PA Work Phone: [facility] 06-08-2024 14:25-0400 Systolic blood pressure 142 mm[Hg] Krislyn Aberegg PA Work Phone: [facility] 03-11-2024 12:56-0400 Body temperature 96.91 [degF] Desmond Wilson MD Work Phone: [facility] 03-11-2024 12:56-0400 Body weight 86.2 kg Desmond Wilson MD Work Phone: [facility] 03-11-2024 12:56-0400 Diastolic blood pressure 64 mm[Hg] Desmond Wilson MD Work Phone: [facility] 03-11-2024 12:56-0400 Heart rate 77 /min Desmond Wilson MD Work Phone: [facility] 03-11-2024 12:56-0400 Respiratory rate 21 /min Desmond Wilson MD Work Phone: [facility] 03-11-2024 12:56-0400 SaO2% (BldA) [Mass fraction] 99 % Desmond Wilson MD Work Phone: [facility] 03-11-2024 12:56-0400 Systolic blood pressure 100 mm[Hg] Desmond Wilson MD Work Phone: [facility] Encounters Encounter Date Encounter Type Care Provider Facility Start: 06-09-2024 Telephone encounter Ita Liu APRN.CNP Work Phone: [facility] Comment on above: Results Start: 06-08-2024 End: 06-08-2024 ambulatory Facility:[facility] Start: 06-08-2024 End: 06-08-2024 Patient encounter procedure Lakesha SMITH Work Phone: [employer] [facility] Comment on above: Sore throat (Primary Dx); Fever, unspecified fever cause; Dizziness Start: 05-23-2024 ambulatory [facility] Facility :[facility] Start: 05-23-2024 End: 05-25-2024 Evaluation and management of inpatient [facility] Facility:[facility] Start: 03-11-2024 End: 03-11-2024 ambulatory Facility:[facility] Start: 03-11-2024 End: 03-11-2024 Patient encounter procedure Desmond Wilson MD Work Phone: [employer] [facility] Comment on above: Sore throat (Primary Dx) Procedures Date Procedure Procedure Detail Performing Clinician Start: 06-08-2024 STREP A MOLECULAR (POC) Lakesha SMITH Work Phone: Start: 03-11-2024 Sars-cov-2 detection by dna/rna Desmond Wilson MD Work Phone: Start: 03-11-2024 STREP A MOLECULAR (POC) Desmond Wilson MD Work Phone: Plan of Treatment Date Care Activity Detail Author Start: 06-15-2026 Diabetes Screening Diabetes Screenin g [facility] Start: 07-14-2024 Influenza vaccination [facility] Start: 11-13-2023 Behavioral Health Screening Behavioral Health Screening [facility] Start: 2023 Screening for malign ant neoplasm of colon [facility] Start: 07-14-2023 Covid-19 Vaccine () Covid-19 Vaccine () [facility] Start: 2013 Lipid panel Lipid Screening [facility] Start: 1997 Hepatitis B Vaccine (1 of 3 - 19+ 3-dose series) Hepatitis B Vaccine (1 of 3 - 19+ 3-dose series) [facility] Start: 1997 Urine microalbumin profile DTaP,Tdap,Td Vaccine (1 - Tdap) [facility] Start: 1996 Anxiety Screening Anxiety Screening [facility] Start: 1996 Depression Screening Depression Scre andreina [facility] Start: 1996 Hepatitis C screening Hepatitis C Sc maddison [facility] Start: 1996 HIV screening HIV Screening [facility] COVID & INFLUENZA A/ B & RSV NAAT, ROUTINE COVID & INFLUENZA A/B & RSV NAAT, ROUTINE Microbiology Routine Sore throat Fever, unspecified fever cause Ordered: 06/08/2024 [facility] Work Phone: Comment on above: Ordered: 06/08/2024 Payers Date Payer Category Payer Self-pay 2023 Private Health Insurance [employer] A ETNA POS [id number] 2023-Present [phone] [address] [place] [address] POS [id number] 2023 Private Health Insurance [id number] Unknown [id number] Unknown [id number] Unknown [id number] Unknown [id number] Social History Date Type Detail Facility Start: 03-11-2024 Tobacco smoking stat us NCIS Never smoked tobacco [facility] Start: 03-11-2024 Tobacco use and exposure Smoke less tobacco non-user [facility] Start: 06-07-2021 End: 03-11-2024 History of Social function [facility] Start: 06-07-2021 End: 03-11-2024 Tobacco use panel [facility] National Score (1-10 0), lower number is lower risk Not on file [facility] Start: 1980 Sex Assigned At Not on file [facility] Clinical Notes 03-11-2024 to 06-10-2024 Telephone Encounter - Chantelle Sarmiento MA - 06/10/2024 8:38 AM EDTTelephone Encounter - Chantelle Sarmiento MA - 06/10/2024 8:38 AM EDTTelephone Encounter - Dyana Melo MA - 06/09/2024 9:47 AM EDT Note Date & Type Note Facility 06-10-2024 Telephone encounter Note Patient viewed in [employer]. Chantelle Sarmiento MA [facility] 06-10-2024 Miscellaneous Notes Patient viewed in [employer]. Chantelle Sarmiento MA Left VM instructing patient to return call to receive results. Dyana Melo MA Negative for covid, flu and rsv please notify thank you documented in this encounter [facility] 06-09-2024 Telephone encounter Note Left VM instructing patient to return call to receive results. Dyana Melo MA [facility] 06-09-2024 Telephone encounter Note Negative for covid, flu and rsv please notify thank you [facility] Work Phone: 06-08-2024 Note HNO ID: [id number] Author: LAKESHA GOMEZ PA Service: ? Author Type: Physician Gardener Type: Progress Notes Filed: 06/08/2024 14:53 Note Text: This note was created using [employer]. Subjective Sindhu Palmer is a 43 year old male. HPI 43-year-old male presents for fever, body aches, chills, sore throat, dizziness x 5 days. Patient states that on Monday he started feeling under the weather. He had a little bit of a sore throat and had chills and bodyaches. He states that 2 days ago he had a fever of 103 ?F. He has not had a fever since. He states that he still feels achy and chills and the skin on his body hurts to touch. He denies any headache. He states occasionally he feels a little dizzy when he turns his head too quickly. No dizziness currently. Feels a little bit lightheaded occasionally. No vision changes. He denies any cough, nasal congestion, abdominal pain, vomiting, diarrhea. No chest pain or shortness of breath. Patient was admitted to [facility] 2 weeks ago for alcohol detoxification. Patient states that he is now on a medication and has not drank alcohol since. He does not feel like he is in any withdrawal as he has not drank alcohol for several weeks now and felt fine after detox and being discharged from hospital. Unsure of any sick contacts, but again was admitted to the hospital several weeks ago. Patient has not done a home COVID test. Patient denies any tick bite or rashes. PAST MEDICAL HISTORY Diagnosis Date Depression No past surgical history on file. ALLERGIES Patient has no known allergies. MEDICATIONS Pimozide 1 mg tab Take 1 mg by mouth once daily. metoprolol succinate ER (TOPROL XL) 50 mg 24 hr tablet Take 1 tablet by mouth every 12 hours. sertraline (ZOLOFT) 100 mg tablet Take 1 tablet by mouth every afternoon. traZODone (DESYREL) 50 mg tablet Take 100 mg by mouth daily at bedtime. ZEPBOUND 10 mg/0.5 mL pen injector INJECT 10 MG SUBCUTANEOUSLY ONE TIME PER WEEK No family history on file. Social History Tobacco Use Smoking status: Never Smokeless tobacco: Never Review of Systems Constitutional: Positive for chills and fever. HENT: Positive for sore throat. Negative for congestion. Respiratory: Negative for cough, chest tightness and shortness of breath. Gastrointestinal: Negative for abdominal pain, diarrhea and vomiting. Neurological: Positive for dizziness and light-headedness. Objective BP 142/100 Pulse 105 Temp 36.8 ?C (98.3 ?F) Resp 21 Wt 83.3 kg (183 lb 10.3 oz) SpO2 99% Physical Exam Vitals and nursing note reviewed. Constitutional: General: He is not in acute distress. Appearance: Normal appearance. He is not toxic-appearing. HENT: Right Ear: Tympanic membrane and ear canal normal. Left Ear: Tympanic membrane and ear canal normal. Nose: Nose normal. Mouth/Throat: Mouth: Mucous membranes are moist. Pharynx: Uvula midline. Posterior oropharyngeal erythema present. Tonsils: No tonsillar exudate or tonsillar abscesses. 1+ on the right. 1+ on the left. Eyes: Conjunctiva/sclera: Conjunctivae normal. Cardiovascular: Rate and Rhythm: Normal rate and regular rhythm. Pulmonary: Effort: Pulmonary effort is normal. Breath sounds: Normal breath sounds. Abdominal: General: Bowel sounds are normal. Palpations: Abdomen is soft. Tenderness: There is no abdominal tenderness. Skin: General: Skin is warm and dry. Neurological: Mental Status: He is alert. Sensory: Sensation is intact. Motor: Motor function is intact. Coordination: Coordination is intact. Gait: Gait is intact. Assessment and Plan ASSESSMENT/PLAN: 1. Sore throat - ICD9: 462, ICD10: J02.9 (primary diagnosis) - suspect viral - Group A strep molecular testing negative - Discussed supportive care treatment with fluids, rest and analgesia. - The patient may also use warm salt water gargles, throat lozenges and/or OTC throat spray as needed. - COVID AND INFLUENZA A/B AND RSV NAAT, ROUTINE - STREP A MOLECULAR (POC) 2. Fever, unspecified fever cause - ICD9: 780.60, ICD10: R50.9 -Suspect viral. -Continue Tylenol/Motrin, fluids, rest. - COVID AND INFLUENZA A/B AND RSV NAAT, ROUTINE -Out of window for Tamiflu and antiviral, but patient would like tested as he will be traveling soon. - STREP A MOLECULAR (POC) 3. Dizziness - ICD9: 780.4, ICD10: R42 -None currently. Patient states he feels a little lightheaded/dizzy when turning his head too quickly. -Possibly BPPV. -No focal neurodeficits on exam. Asymptomatic currently. -No lab testing available at this time. -Advised patient if dizziness or lightheadedness persists or worsens, needs to be seen in ER. He understands. For develops any vision changes, headaches, chest pain or shortness of breath, be seen in ER. Diagnosis and treatment plan were discussed and questions were answered to the patient's satisfaction. Pt acknowledged understanding of concepts (more content not included)... [facility] 06-08-2024 History of Presen t illness Narrative This note was created using Personal [employer]. Subjective Sindhu Palmer is a 43 year old male. HPI 43-year-old male presents for fever, body aches, chills, sore throat, dizziness x 5 days. Patient states that on Monday he started feeling under the weather. He had a little bit of a sore throat and had chills and bodyaches. He states that 2 days ago he had a fever of 103 F. He has not had a fever since. He states that he still feels achy and chills and the skin on his body hurts to touch. He denies any headache. He states occasionally he feels a little dizzy when he turns his head too quickly. No dizziness currently. Feels a little bit lightheaded occasionally. No vision changes. He denies any cough, nasal congestion, abdominal pain, vomiting, diarrhea. No chest pain or shortness of breath. Patient was admitted to [facility] 2 weeks ago for alcohol detoxification. Patient states that he is now on a medication and has not drank alcohol since. He does not feel like he is in any withdrawal as he has not drank alcohol for several weeks now and felt fine after detox and being discharged from hospital. Unsure of any sick contacts, but again was admitted to the hospital several weeks ago. Patient has not done a home COVID test. Patient denies any tick bite or rashes. PAST MEDICAL HISTORY Diagnosis Date Depression No past surgical history on file. ALLERGIES Patient has no known allergies. MEDICATIONS Pimozide 1 mg tab Take 1 mg by mouth once daily. metoprolol succinate ER (TOPROL XL) 50 mg 24 hr tablet Take 1 tablet by mouth every 12 hours. sertraline (ZOLOFT) 100 mg tablet Take 1 tablet by mouth every afternoon. traZODone (DESYREL) 50 mg tablet Take 100 mg by mouth daily at bedtime. ZEPBOUND 10 mg/0.5 mL pen injector INJECT 10 MG SUBCUTANEOUSLY ONE TIME PER WEEK No family history on file. Social History Tobacco Use Smoking status: Never Smokeless tobacco: Never Review of Systems Constitutional: Positive for chills and fever. HENT: Positive for sore throat. Negative for congestion. Respiratory: Negative for cough, chest tightness and shortness of breath. Gastrointestinal: Negative for abdominal pain, diarrhea and vomiting. Neurological: Positive for dizziness and light-headedness. Objective BP 142/100 Pulse 105 Temp 36.8 C (98.3 F) Resp 21 Wt 83.3 kg (183 lb 10.3 oz) SpO2 99% Physical Exam Vitals and nursing note reviewed. Constitutional: General: He is not in acute distress. Appearance: Normal appearance. He is not toxic-appearing. HENT: Right Ear: Tympanic membrane and ear canal normal. Left Ear: Tympanic membrane and ear canal normal. Nose: Nose normal. Mouth/Throat: Mouth: Mucous membranes are moist. Pharynx: Uvula midline. Posterior oropharyngeal erythema present. Tonsils: No tonsillar exudate or tonsillar abscesses. 1+ on the right. 1+ on the left. Eyes: Conjunctiva/sclera: Conjunctivae normal. Cardiovascular: Rate and Rhythm: Normal rate and regular rhythm. Pulmonary: Effort: Pulmonary effort is normal. Breath sounds: Normal breath sounds. Abdominal: General: Bowel sounds are normal. Palpations: Abdomen is soft. Tenderness: There is no abdominal tenderness. Skin: General: Skin is warm and dry. Neurological: Mental Status: He is alert. Sensory: Sensation is intact. Motor: Motor function is intact. Coordination: Coordination is intact. Gait: Gait is intact. Assessment and Plan ASSESSMENT/PLAN: 1. Sore throat - ICD9: 462, ICD10: J02.9 (primary diagnosis) - suspect viral - Group A strep molecular testing negative - Discussed supportive care treatment with fluids, rest and analgesia. - The patient may also use warm salt water gargles, throat lozenges and/or OTC throat spray as needed. - COVID & INFLUENZA A/B & RSV NAAT, ROUTINE - STREP A MOLECULAR (POC) 2. Fever, unspecified fever cause - ICD9: 780.60, ICD10: R50.9 -Suspect viral. -Continue Tylenol/Motrin, fluids, rest. - COVID & INFLUENZA A/B & RSV NAAT, ROUTINE -Out of window for Tamiflu and antiviral, but patient would like tested as he will be traveling soon. - STREP A MOLECULAR (POC) 3. Dizziness - ICD9: 780.4, ICD10: R42 -None currently. Patient states he feels a little lightheaded/dizzy when turning his head too quickly. -Possibly BPPV. -No focal neurodeficits on exam. Asymptomatic currently. -No lab testing available at this time. -Advised patient if dizziness or lightheadedness persists or worsens, needs to be seen in ER. He understands. For develops any vision changes, headaches, chest pain or shortness of breath, be seen in ER. Diagnosis and treatment plan were discussed and questions were answered to the patient's satisfaction. Pt acknowledged understanding of concepts and follow up plan. Specific signs and symptoms that would indicate the need for higher level of care were discussed in detail warranting prompt ER evaluation. SARAH Steward documented in this encounter [facility] 05-25-2024 Note [facility] Medical Records Department [address] [place] [address] Discharge Summary 05/25/24 1026 MR#: [id number] Acct: [id number] Name: SINDHU PALMER Rep #: [id number] : 1980 43 From: Norbert Sandoval DO PCP: GARRETT DARDEN Status:DIS IN [place] [facility] [id number] Providers Date of Admission: 05/23/24 Date of Discharge: 05/25/24 Primary Care Physician: GARRETT DARDEN Reason For Visit: ETOH DETOX Diagnosis Discharge Diagnosis (1) Alcohol dependence with acute alcoholic intoxication: Status: Acute Code(s): F10.229 - Alcohol dependence with intoxication, unspecified Plan 1. Acute alcohol withdrawal-patient has asymptomatic at this time on phenobarbital, again I have elected to decrease his phenobarbital dosage. #2 chronic alcoholism-complicates care, management, recovery, and prognosis #3 chronic anxiety and depression-patient will continue on his present medication #4 essential hypertension-patient will remain on metoprolol #5 OCD-patient according to nursing is not a medication called pimozide Total clinical time spent by myself addressing the patient's medical issues, reviewing all of his data, and collaborating with patient's care team: 35 minutes Medications at Discharge Home Medications ibuprofen 200 mg tablet (Advil) 200 mg PO Q6H PRN pain 11/14/22 metoprolol succinate 25 mg tablet,extended release 24 hr 25 mg PO DAILY 11/14/22 trazodone 50 mg tablet 50 mg PO DAILY 11/14/22 melatonin 5 mg capsule 5 mg PO QHS sleep 05/22/24 sertraline 100 mg tablet 200 mg PO DAILY 05/22/24 meclizine 25 mg tablet 25 mg PO TID PRN PRN vertigo 05/23/24 pimozide 1 mg tablet 1 mg PO QHS ocd 05/23/24 tirzepatide (weight loss) 10 mg/0.5 mL subcutaneous pen injector (Zepbound) 10 mg subcut QWEEK weight loss 05/23/24 hydroxyzine pamoate 25 mg capsule 50 mg (2 x 25 mg) PO Q4H PRN PRN mild anxiety #30 caps 05/25/24 phenobarbital 32.4 mg tablet 32.4 mg PO 2XD #4 tabs 05/25/24 Hospital Course Operations None Procedures None Summary of Care Provided Minutes Spent on Discharge: 30 Hospital Course: This 43-year-old white male was seen in the emergency room at [facility] requesting services for alcohol detox, patient was admitted to [place] [address] and orders were entered using the alcohol detox order set, he was seen in consultation by addiction social media marketing specialist. Patient did not have any evidence of DTs while in the hospital. On 05/25/2024, patient was seen and examined: On examination he appeared in good health and spirits. Vital signs as documented. Skin warm and dry and without overt rashes. Neck without JVD, neck was supple, trachea midline, thyroid was normal. Lungs clear bilaterally, normal air movement was noted. Heart exam notable for regular rhythm, normal sounds and absence of murmurs, rubs or gallops. Abdomen unremarkable and without evidence of organomegaly, masses, or abdominal aortic enlargement. Bowel sounds are present, abdomen is not distended. Extremities nonedematous, no cyanosis was noted, no clubbing was noted. Neuro: Cranial nerves II through XII are grossly intact, no focal motor deficits were noted, sensation to light touch and pinprick intact, motor exam 5/5 throughout. Psych: Patient is alert and oriented x3, he does not appear anxious or depressed, he does not appear agitated. Patient appears stable for discharge home on 05/25/2024. Weight / BMI Weight Weight: 82.6 kg Body Mass Index (BMI) 24.7 ABG / Lab / Microbiology Data 05/23/24 00:16 05/23/24 00:16 D/C Instructions Discharge Diet: No restrictions Weight Bearing Status: Full weight bearing Meaningful Use Info Meaningful Use Meaningful Use Diagnoses (Choose all that apply): None applicable Ischemic Stroke Statin Dosing Therapy Reference: STATIN DOSE THERAPY REFERENCE: * Patients > 75 years receive moderate or high dose statin therapy. * Patients 75 years or YOUNGER should receive HIGH intensity statin dose unless contraindicated. You will be required to document reason for non-treatment if statin daily dose does not meet guidelines. HIGH DOSE STATIN THERAPY DAILY Atorvastatin > than or = to 40 mg Rosuvastatin > than or = to 20 mg Amlodipine + Atorvastatin > than or = to 2.5/40 mg Ezetimibe + Simvastatin 10/80 mg Simvastatin 80mg Discharge Plan Admission Admit Date/Time: 05/23/24 00:51 Primary Reason for Your Visit: Alcohol detox Attending Provider: oNrbert Sandoval Primary Care Provider: GARRETT DARDEN Consulting Providers: Kitty Reid Instructions Additional Instructions / Restrictions: Contact 180 on 05/27/2024 for follow-up instructions Discharge Orders/Prescriptions Prescriptions: New hydroxyzine pamoate 25 mg Capsule 50 mg PO Q4H PRN PRN (Reason: mild anxiety) Qty: 30 (more content not included)... [facility] 03-11-2024 Note HNO ID: [id number] Author: DESMOND WILSON MD Service: ? Author Type: Physician Type: Progress Notes Filed: 03/11/2024 13:17 Note Text: Patient presents with: Sore Throat: X2 days HPI: Feeling sore throat for 2-3 days, worse today. He is here from [place]. Positive symptoms: Sore throat, little rhinorrhea/Cough, Negative symptoms: Fever, Chills, OTC: Ibuprofen PAST MEDICAL HISTORY Diagnosis Date Depression Takes metoprolol for hypertension, but BP has been low recently since losing weight. MEDICATIONS: Current Outpatient Medications Medication Sig metoprolol succinate ER (TOPROL XL) 50 mg 24 hr tablet Take 1 tablet by mouth every 12 hours. sertraline (ZOLOFT) 100 mg tablet Take 1 tablet by mouth every afternoon. traZODone (DESYREL) 50 mg tablet Take 100 mg by mouth daily at bedtime. ZEPBOUND 10 mg/0.5 mL pen injector INJECT 10 MG SUBCUTANEOUSLY ONE TIME PER WEEK No current facility-administered medications for this visit. ALLERGIES: ALLERGIES No Known Allergies VITALS: BP 100/64 Pulse 77 Temp 36.1 ?C (96.9 ?F) Resp 21 Wt 86.2 kg (190 lb 0.6 oz) SpO2 99% PHYSICAL EXAM: GEN: Pleasant, in no acute distress. HEENT: PERRL, EOMI, conjunctiva clear Ears: canals clear. TMs without erythema, bulge, or effusion Sinuses: non-tender frontal sinus, non-tender maxillary sinuses Throat: moist mucous membranes, mild erythema, with small soft palate ulcerations, no exudate Neck: supple, no thyromegaly, no lymphadenopathy HEART: regular rate and rhythm, no murmurs LUNGS: clear to auscultation, no wheezes or crackles, no increased WOB ASSESSMENT/PLAN: 1. Sore throat - ICD9: 462, ICD10: J02.9 - STREP A MOLECULAR (POC) - negative home COVID test negative today. He would like confirmation- COVID NAAT, UPPER RESPIRATORY, ROUTINE. Reports normal kidney function through PCP last month. He would like paxlovid if postive. Will need to hold trazodone which he takes as a sleep aid. Desmond Wilson MD [facility] 03-11-2024 History of Presen t illness Narrative Patient presents with: Sore Throat: X2 days HPI: Feeling sore throat for 2-3 days, worse today. He is here from [place]. Positive symptoms: Sore throat, little rhinorrhea/Cough, Negative symptoms: Fever, Chills, OTC: Ibuprofen PAST MEDICAL HISTORY Diagnosis Date Depression Takes metoprolol for hypertension, but BP has been low recently since losing weight. MEDICATIONS: Current Outpatient Medications Medication Sig metoprolol succinate ER (TOPROL XL) 50 mg 24 hr tablet Take 1 tablet by mouth every 12 hours. sertraline (ZOLOFT) 100 mg tablet Take 1 tablet by mouth every afternoon. traZODone (DESYREL) 50 mg tablet Take 100 mg by mouth daily at bedtime. ZEPBOUND 10 mg/0.5 mL pen injector INJECT 10 MG SUBCUTANEOUSLY ONE TIME PER WEEK No current facility-administered medications for this visit. ALLERGIES: ALLERGIES No Known Allergies VITALS: BP 100/64 Pulse 77 Temp 36.1 C (96.9 F) Resp 21 Wt 86.2 kg (190 lb 0.6 oz) SpO2 99% PHYSICAL EXAM: GEN: Pleasant, in no acute distress. HEENT: PERRL, EOMI, conjunctiva clear Ears: canals clear. TMs without erythema, bulge, or effusion Sinuses: non-tender frontal sinus, non-tender maxillary sinuses Throat: moist mucous membranes, mild erythema, with small soft palate ulcerations, no exudate Neck: supple, no thyromegaly, no lymphadenopathy HEART: regular rate and rhythm, no murmurs LUNGS: clear to auscultation, no wheezes or crackles, no increased WOB ASSESSMENT/PLAN: 1. Sore throat - ICD9: 462, ICD10: J02.9 - STREP A MOLECULAR (POC) - negative home COVID test negative today. He would like confirmation- COVID NAAT, UPPER RESPIRATORY, ROUTINE. Reports normal kidney function through PCP last month. He would like paxlovid if postive. Will need to hold trazodone which he takes as a sleep aid. Desmond Wilson MD documented in this encounter [facility] Evaluation note Diagnosis Sore throat- Primary Acute pharyngitis documented [facility] this [facility] Diagnosis Sore throat- Primary Acute pharyngitis Fever, unspecified fever cause Dizziness Dizziness and giddiness documented in this encounter [facility] Summary Purpose Family History No Family History Records FoundNo Family History Records Found Advance Directives No Advanced Directives Records FoundNo Advanced Directives Records Found Additional Source Comments Source Comments (unrecognize d section and content) In the event this informatio n is protected by the Federal Confidentiality of Alcohol and Drug Abuse Patient Records regulations: The Federal rules restrict any use of the information to criminally investigate or prosecute any alcohol or drug abuse patient.[facility] the event this information is protected by the Federal Confidentiality of Alcohol and Drug Abuse Patient Records regulations: The Federal rules restrict any use of the information to criminally investigate or prosecute any alcohol or drug abuse patient.[facility] the event this information is protected by the Federal Confidentiality of Alcohol and Drug Abuse Patient Records regulations: The Federal rules restrict any use of the information to criminally investigate or prosecute any alcohol or drug abuse patient.[facility] Reason for Visit (unrecogniz ed section and content) Reason Comments Sore Throat X2 days Reason Comments Fever Dizziness, body ache s, chills, skin on back is tender x 5 days Reason Comments Results (unrecognized sect ion and content) No Status Records FoundNo Status Records Found INFORMATION SOURCE (unrecogn ized section and content) DATE CREATED AUTHOR 05/29/2024 [facility] DATE CREATED AUTHOR AUTHOR'S JOHNY FLEMING 06/09/2024 [facility] FOR RECORDS PERTAINING TO PATIENTS WHO ARE OR HAVE BEEN ENROLLED IN A CHEMICAL DEPENDENCY/SUBSTANCEABUSE PROGRAM, SOME INFORMATION MAY BE OMITTED. This clinical summary was aggregated from multiple sources. Caution should be exercised in using it in the provision of clinical care. This summary normalizes information from multiple sources, and as a consequence, information in this document may materially change the coding, format and clinical context of patient data. In addition, data may be omitted in some cases. CLINICAL DECISIONS SHOULD BE BASED ON THE PRIMARY CLINICAL RECORDS. [facility] [employer] [facility]. provides no warranty or guarantee of the accuracy or completeness of information in this document.
[2025-08-30 17:00] VITALS: PULSE 91; RESP 17; O2SAT 98
--- NOTE | 2025-08-30 17:19 | PCM.HP.STD ---
HPI - General General Date of Admission: 08/30/25 Date of Service: 08/30/25 Chief Complaint: Patient came here for help for alcohol detox HPI Narrative SINDHU AMAYA, is a 44 M who presents to ED to get help for alcohol dependence. He drinks a pint of vodka every day for last 3 to 4 weeks. Prior to that, he went for alcohol detox program about 5 months ago and had a few months of sobriety then he relapsed his last drink was yesterday evening. Patient started drinking alcohol in high school on weekend about 2-3 beers but he became alcohol dependent/heavy drinking during COVID pandemic in 2019. He is also on Suboxone for kratom which is herbal drug with psychoactive ingredient in both the stimulant and opioid like effects. [facility] Medical History Alcohol dependence with acute alcoholic intoxication Admitted to alcohol detoxification center Former tobacco use Anxiety and depression History of seizure Pancreatitis Hypertension Home Medications Medication Instructions Recorded Last Taken Type ibuprofen 200 mg tablet (Advil) 200 mg PO Q6H PRN pain 11/14/22 Unknown History melatonin 5 mg capsule 5 mg PO QHS sleep 05/22/24 Unknown History buprenorphine 8 mg-naloxone 2 mg 1 ea sublingual DAILY 08/30/25 Unknown History sublingual film buspirone 15 mg tablet 30 mg PO BID 08/30/25 Unknown History chlordiazepoxide HCl 5 mg capsule PO 08/30/25 Unknown History gabapentin 300 mg capsule 600 mg PO TID 08/30/25 Unknown History hydroxyzine pamoate 25 mg capsule 50 mg PO QHS PRN mild anxiety 08/30/25 Unknown History pimozide 2 mg tablet 2 mg PO QHS 08/30/25 Unknown History quetiapine 50 mg tablet 150 mg PO QHS 08/30/25 Unknown History trazodone 100 mg tablet 100 mg PO QHS 08/30/25 Unknown History vortioxetine 10 mg tablet 10 mg PO DAILY 08/30/25 Unknown History (Trintellix) Allergy/AdvReac Type Severity Reaction Status Date / Time No Known Allergies Allergy Verified 08/30/25 15:06 Family History Father Heart disease Mother No problems noted. Surgical History No history of previous surgery Social History household members: significant other Smoking Status: Former smoker how long ago did patient quit smoking: Quit 15-16 yrs prior, smoked 1/2 ppd since 14 until quit. alcohol intake: current alcohol intake frequency: 3 or more drinks per day details: 10-11 beers daily, occasionally hard liquor. substance use type: does not use ROS ROS Narrative Constitutional: Reports no fatigue and weakness. No fever. HEENT: Reports systems reviewed and no addt'l complaints, except as documented Respiratory/Chest: No acute shortness of breath or respiratory distress or wheezing. CVS: No chest pain or shortness of breath Gastrointestinal: Denies coffee ground emesis, hematemesis or vomiting. Denies chronic liver disease or jaundice or history of GI bleed in the past Genitourinary: Denies burning urination or new urinary tract symptoms Musculoskeletal: Denies acute joint pain or limited range of motion. No acute injury Neurologic: Denies seizure-like symptoms. No tremors. Psychiatric: No hallucination/delusion. No suicidal ideation skin: No ulcer. No rash Endocrinology: Reports systems reviewed and no addt'l complaints, except as documented Hematologic/Lymphatic: Reports systems reviewed and no addt'l complaints, except as documented Rest 14 ROS are negative except as mentioned in HPI Vital Signs Vital Signs Vital Signs: 08/30/25 15:06 08/30/25 16:06 Temperature 98.9 F Temperature Source Oral Pulse Rate 106 H 93 Respiratory Rate 18 22 H Blood Pressure 142/97 H 136/65 H Blood Pressure Mean 112 88 Pulse Ox 100 100 Oxygen Delivery Method Room Air Room Air Weight Weight: 164 lb 14.4 oz Body Mass Index (BMI) 22.4 Physical Exam Narrative General: Alert, Oriented x3, Cooperative HEENT: Atraumatic, PERRLA, EOMI, Normocephalic. Oral: No Gingival or Mucosal Lesions/ Ulcerations Neck: Supple, No JVD, Negative Carotid Bruits Chest wall/Lungs: Air entry equal in bilateral lung bases. No crepitation/rhonchi Cardiovascular: Regular rate and rhythm, Normal S1,S2, No M/G/R Abdomen: Bowel Sounds Present, Soft, Non Tender, Non-Distended : No dysuria. No renal angle tenderness. No suprapubic tenderness. Extremities: No edema, Capillary Refill Less than 3 Seconds Skin: No rashes, No breakdown Musculoskeletal: No Tenderness to Palpation of Joints or Extremities Neurological: Cranial nerves II-XII grossly intact, DTR 2+/4. No acute focal neurological deficit. Psych/Mental Status: Normal Affect, Appropriate. No tremors. No hallucination Results Lab / Micro Data 08/30/25 15:20 08/30/25 15:20 Labs: Laboratory Results - last 24 hr 08/30/25 15:20: WBC 7.3, RBC 4.24 L, Hgb 12.9 L, Hct 39.1 L, MCV 92.2, MCH 30.4, MCHC 33.0, RDW Std Deviation 50.7 H, RDW Coeff of Maxime 15.0 H, Plt Count 241, MPV 9.3, Immature Gran % (Auto) 0.300, Neut % (Auto) 80.3 H, Lymph % (Auto) 13.5 L, Duchesne % (Auto) 4.9, Eos % (Auto) 0.5, Baso % (Auto) 0.5, Absolute Neuts (auto) 5.9, Absolute Lymphs (auto) 0.99, Nucleated RBC % 0, PT 13.1, INR 1.0, Sodium 141, Potassium 4.0, Chloride 101, Carbon Dioxide 29.2, Anion Gap 11, BUN 12, Creatinine 0.77, Estim Creat Clear Calc 126.82, Est GFR (MDRD) Non-Af 112, BUN/Creatinine Ratio 15.6, Glucose 127 H, Calcium 9.9, Total Bilirubin 0.39, AST 19, ALT 19, Alkaline Phosphatase 59, Total Protein 7.4, Albumin 4.7, Globulin 2.7, Albumin/Globulin Ratio 1.8, Ethyl Alcohol < 10.1 Assessment & Plan Assessment/Plan (1) Alcohol withdrawal syndrome: PLAN: Plan This is a 44 old gentleman with history of chronic alcohol use and dependence and relapse came to ED for alcohol detox 1. Mild acute alcohol withdrawal syndrome with history of chronic alcohol use dependence, tolerance and relapse: The patient is being admitted to [facility] floor. Patient on phenobarbital based order set along with other adjunctive medications gabapentin, Bentyl, Vistaril, clonidine, Klonopin as needed for alcohol withdrawal symptom control. Patient is on thiamine and folate acid. CIWA monitor. shift nurse manager [id number] consulted. 2. Chronic use of kratom on Suboxone: Continued 3. Denies smoking or other substance use. 4. DVT prophylaxis, low risk: No prophylaxis indicated. Early ambulation encouraged. Living will/advanced directive/end of life care: Patient does not have living will or advanced directive. He does not have DailyD power of commonwealth attorney for health after discussion of benefits/risks procedures involved with full code, DNR CC arrest and DNR CC, the patient opted for full code. Patient does want artificial life support including intubation, tube feed, ventilator and/chest compression, central venous catheter, vasopressor and DC shock if needed Total time spent in [id number] encounter in discussion of advanced directive 17 minutes. Charges/Coding Visit Charges Inpatient E&M: 69077 Init Hosp L3 Procedures Hospitalists Procedures: 99831 Advncd Care Plan 30 Min
[2025-08-30 17:28] LABS: Mucous, Urine 0 SEEN /hpf (<or=2+); Red Blood Cells-Urine 0 SEEN /hpf (0-5); Squamous Epithelial Cells - UA 0 SEEN /hpf (0-5)
[2025-08-30 17:30] LABS: Color, Urine Yellow (Yellow); Glucose, Dipstick Normal (Normal); Ketone-Dipstick Negative (Negative); Leukocyte Esterase-Dipstick Negative /ul (Negative); Nitrite-Dipstick Negative (Negative); Occult Blood-Urine Negative /ul (Negative); Protein-Dipstick 15 mg/dl (Negative); Specific Gravity, Urine 1.015 (1.002-1.030); Urine Bilirubin Dipstick Negative (Negative)
[2025-08-30 17:32] VITALS: BP 136/65; PULSE 91; RESP 17; TEMP 37.2; O2SAT 98
--- NOTE | 2025-08-30 17:37 | CM.ED ---
Social Work Date of referral: 08/30/25 Reason for referral: No Primary Care Physician (PCP)on file Referred by: Hospitality Associate identification Patient provided consent to social work visit. Patient confirmed that he does have a PCP in [place]. Patient stated he is here visiting with his parents and has plans to return home in the near future. Patient denied the need for any PCP resources at this time, no any other needs/resources. Patient expressed appreciation for social work visit. Payton Gardner, S[employer]BEL CONSULTANT, [employer]ORCYCLE MECH[employer]IC
--- OUTSIDE RECORDS SUMMARY | 2025-08-30 17:48 | XMS RPT_ITS | CCD ---
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 documented in this encounter [facility] Evaluation note Diagnosis Sore throat- Primary Acute pharyngitis [facility] Diagnosis Sore throat- Primary Acute pharyngitis Fever, unspecified fever cause Dizziness Dizziness and giddiness documented in this encounter [facility] Summary Purpose Family History No Family History [...] or prosecute any alcohol or drug abuse patient.[facility] the event this information is protected by the Federal Confidentiality of Alcohol and Drug Abuse Patient Records regulations: The Federal rules restrict any use of the information to criminally investigate or prosecute any alcohol or drug abuse patient.[facility] the event this information is protected by the Federal Confidentiality of Alcohol and Drug Abuse Patient Records regulations: The Federal rules restrict any use of the information to criminally investigate or prosecute any alcohol or drug abuse patient.[facility] Reason for Visit (unrecogniz ed section and content) Reason Comments Sore Throat X2 days Reason Comments Fever Dizziness, body ache s, chills, skin on back is tender x 5 days Reason Comments Results (unrecognized sect ion and content) No Status Records FoundNo Status Records Found INFORMATION SOURCE (unrecogn ized section and content) DATE CREATED AUTHOR 05/29/2024 [facility] DATE CREATED AUTHOR AUTHOR'S JOHNY FLEMING 06/09/2024 [facility] FOR RECORDS PERTAINING TO PATIENTS WHO [...] BE BASED ON THE PRIMARY CLINICAL RECORDS. [facility]. provides no warranty or guarantee of the accuracy or completeness of information in this document.
--- OUTSIDE RECORDS SUMMARY | 2025-08-30 17:59 | XMS RPT_ITS | CCD ---
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 in this encounter [facility] Evaluation note Diagnosis Sore throat- Primary Acute pharyngitis [facility] Diagnosis Sore throat- Primary Acute pharyngitis Fever, unspecified fever cause Dizziness Dizziness and giddiness documented in this encounter [facility] Summary Purpose Family History No Family History [...] or prosecute any alcohol or drug abuse patient.[facility] the event this information is protected by the Federal Confidentiality of Alcohol and Drug Abuse Patient Records regulations: The Federal rules restrict any use of the information to criminally investigate or prosecute any alcohol or drug abuse patient.[facility] the event this information is protected by the Federal Confidentiality of Alcohol and Drug Abuse Patient Records regulations: The Federal rules restrict any use of the information to criminally investigate or prosecute any alcohol or drug abuse patient.[facility] Reason for Visit (unrecogniz ed section and content) Reason Comments Sore Throat X2 days Reason Comments Fever Dizziness, body ache s, chills, skin on back is tender x 5 days Reason Comments Results (unrecognized sect ion and content) No Status Records FoundNo Status Records Found INFORMATION SOURCE (unrecogn ized section and content) DATE CREATED AUTHOR 05/29/2024 [facility] DATE CREATED AUTHOR AUTHOR'S JOHNY FLEMING 06/09/[address] [facility] FOR RECORDS PERTAINING TO PATIENTS WHO [...] BE BASED ON THE PRIMARY CLINICAL RECORDS. [facility] [employer] [facility]. provides no warranty or guarantee of the accuracy or completeness of information in this document.
[2025-08-30 18:03] VITALS: BMI 22.0
[2025-08-30 18:03] LABS: SITE Not entered; VBG BASE EXCESS 11 mmol/L (-1.0-3.5); VBG PO2 34 mmHg (25-40); VBG SO2 67 % (50-70); VBG TCO2 37 mmol/L (23-33)
[2025-08-30 18:25] VITALS: BP 155/100; PULSE 90; RESP 16; TEMP 36.7; O2SAT 100
[2025-08-30] MEDS: Nicotine (PBKC) 21 MG Patch TD (18:55)
[2025-08-30] MEDS: hydrOXYzine PAM 25 MG Capsule 50 MG PO (18:56)
[2025-08-30] MEDS: Lactated Ringers 1,000 ML 125 ML IV (18:56)
[2025-08-30 22:46] LABS: Barbiturate Urine PRESUMPTIVE POSITIVE (< 200 ng/mL); Benzodiazepine Urine PRESUMPTIVE POSITIVE (< 200 ng/mL); PCP Urine NEGATIVE (< 25 ng/mL); THC Urine NEGATIVE (< 50 ng/mL)
[2025-08-30 23:02] VITALS: BP 121/82; PULSE 84; RESP 16; TEMP 36.5; O2SAT 95
[2025-08-31] MEDS: MELATONIN 10 MG TABLET 5 MG PO ×2 (00:20→21:21)
[2025-08-31 02:55] VITALS: BP 111/76; PULSE 73; RESP 16; TEMP 36.2; O2SAT 99
[2025-08-31 05:11] LABS: AST(SGOT) 13 U/L (<=37); Alanine Aminotransfer ALT/SGPT 14 U/L (<=46); Albumin, Serum 3.8 g/dL (3.5-5.0); Alkaline Phosphatase 46 U/L (40-129); Anion Gap 10 (5-15); BUN 12 mg/dL (4-19); BUN/Creat Ratio 15.8 RATIO (10-20); Calcium,Total 8.8 mg/dL (7.6-11.0); Carbon Dioxide 28.0 mmol/L (21.0-32.0); Chloride 104 mmol/L (98-108); Estimated Creatinine Clearance 131.81 ml/min (50-250); Globulin 1.8 g/dL (2.2-4.2); Glucose 84 mg/dL (70-99); Potassium 3.7 mmol/L (3.3-5.1)
[2025-08-31 10:03] VITALS: BP 124/82; PULSE 79; RESP 16; TEMP 36.7; O2SAT 99
[2025-08-31] MEDS: VORTIOXETINE HYDROBROMIDE 10 MG TABLET PO (10:32)
[2025-08-31] MEDS: Thiamine Hydrochloride 100 MG Tablet PO (10:37)
[2025-08-31] MEDS: hydrOXYzine PAM 25 MG Capsule 50 MG PO ×2 (10:37→18:22)
[2025-08-31] MEDS: Nicotine (PBKC) 21 MG Patch TD (10:37)
--- NOTE | 2025-08-31 11:57 | PCM.PN.HOSP ---
Reason for Visit Chief Complaint: Patient came here for help for alcohol detox Objective Data Objective Data Vital Signs: Vital Signs Temp Pulse Resp BP Pulse Ox O2 Del Method 98.1 F 79 16 124/82 H 99 Room Air 08/31/25 10:03 08/31/25 10:03 08/31/25 10:03 08/31/25 10:03 08/31/25 10:03 08/31/25 10:03 Oxygen Delivery Method Room Air Weight: 162 lb 7.691 oz Body Mass Index (BMI) 22.0 Intake & Output: Intake and Output for Last 24 Hours 08/29/25 08/30/25 08/31/25 23:59 23:59 23:59 Intake Total 1000 / 1000 Balance 1000 / 1000 Lab / Micro Data 08/30/25 15:20 08/31/25 04:07 Labs: Laboratory Results - last 24 hr 08/30/25 15:20: WBC 7.3, RBC 4.24 L, Hgb 12.9 L, Hct 39.1 L, MCV 92.2, MCH 30.4, MCHC 33.0, RDW Std Deviation 50.7 H, RDW Coeff of Maxime 15.0 H, Plt Count 241, MPV 9.3, Immature Gran % (Auto) 0.300, Neut % (Auto) 80.3 H, Lymph % (Auto) 13.5 L, [place] % (Auto) 4.9, Eos % (Auto) 0.5, Baso % (Auto) 0.5, Absolute Neuts (auto) 5.9, Absolute Lymphs (auto) 0.99, Nucleated RBC % 0, PT 13.1, INR 1.0, Sodium 141, Potassium 4.0, Chloride 101, Carbon Dioxide 29.2, Anion Gap 11, BUN 12, Creatinine 0.77, Estim Creat Clear Calc 126.82, Est GFR (MDRD) Non-Af 112, BUN/Creatinine Ratio 15.6, Glucose 127 H, Calcium 9.9, Total Bilirubin 0.39, AST 19, ALT 19, Alkaline Phosphatase 59, Total Protein 7.4, Albumin 4.7, Globulin 2.7, Albumin/Globulin Ratio 1.8, Ethyl Alcohol < 10.1 08/30/25 17:24: Urine Color Yellow, Urine Clarity Sl. Cloudy, Urine pH 6.5, Ur Specific Sutter 1.015, Urine Protein 15 H, Urine Glucose (UA) Normal, Urine Ketones Negative, Urine Occult Blood Negative, Urine Nitrite Negative, Urine Bilirubin Negative, Urine Urobilinogen Normal, Ur Leukocyte Esterase Negative, Urine RBC 0 SEEN, Urine WBC 0 SEEN, Ur Squamous Epith Cells 0 SEEN, Amorphous Sediment 2+, Urine Bacteria 1+, Urine Mucus 0 SEEN, Urine Opiates Screen NEGATIVE, U Buprenorphine Qual PRESUMPTIVE POSITIVE, Ur Oxycodone Screen NEGATIVE, Urine Methadone Screen NEGATIVE, Urine Fentanyl Screen NEGATIVE, Ur Barbiturates Screen PRESUMPTIVE POSITIVE, Ur Phencyclidine Scrn NEGATIVE, Ur Amphetamines Screen NEGATIVE, U Benzodiazepines Scrn PRESUMPTIVE POSITIVE, Urine Cocaine Screen NEGATIVE, U Cannabinoids Screen NEGATIVE 08/31/25 04:07: Sodium 141, Potassium 3.7, Chloride 104, Carbon Dioxide 28.0, Anion Gap 10, BUN 12, Creatinine 0.73, Estim Creat Clear Calc 131.81, Est GFR (MDRD) Non-Af 114, BUN/Creatinine Ratio 15.8, Glucose 84, Calcium 8.8, Total Bilirubin 0.45, AST 13, ALT 14, Alkaline Phosphatase 46, Total Protein 5.7 L, Albumin 3.8, Globulin 1.8 L, Albumin/Globulin Ratio 2.1 ABG Data ABG results: ABG 08/30/25 17:58 Specimen Type CECI Sample Site Not entered VBG pH 7.44 H VBG pO2 34 VBG HCO3 36 H VBG Total CO2 37 H VBG O2 Sat (Calc) 67 VBG Base Excess 11 H POC Mix VBG pCO2 Pt Tmp 52.4 H O2 Delivery Device Not entered Physical Exam Narrative Patient asked about his home medication buprenorphine. Buprenorphine 2 mg sublingual daily ordered. Denies acute withdrawal symptoms. Physical exam General: Alert, Oriented x3, Cooperative HEENT: Atraumatic, PERRLA, EOMI, Normocephalic. Oral: No Gingival or Mucosal Lesions/ Ulcerations Neck: Supple, No JVD, Negative Carotid Bruits Chest wall/Lungs: Air entry equal in bilateral lung bases. No crepitation/rhonchi Cardiovascular: Regular rate and rhythm, Normal S1,S2, No M/G/R Abdomen: Bowel Sounds Present, Soft, Non Tender, Non-Distended : No dysuria. No renal angle tenderness. No suprapubic tenderness. Extremities: No edema, Capillary Refill Less than 3 Seconds Skin: No rashes, No breakdown Musculoskeletal: No Tenderness to Palpation of Joints or Extremities Neurological: Cranial nerves II-XII grossly intact, DTR 2+/4. No acute focal neurological deficit. Psych/Mental Status: Normal Affect, Appropriate. No tremors. No hallucination Assessment & Plan Assessment/Plan (1) Alcohol withdrawal syndrome: PLAN: Plan This is a 44 old gentleman with history of chronic alcohol use and dependence and relapse came to ED for alcohol detox 1. Mild acute alcohol withdrawal syndrome with history of chronic alcohol use dependence, tolerance and relapse: The patient is being admitted to Med[facility] floor. Patient on phenobarbital based order set along with other adjunctive medications gabapentin, Bentyl, Vistaril, clonidine, Klonopin as needed for alcohol withdrawal symptom control. Patient is on thiamine and folate acid. CIWA monitor. digital asset manager 180 consulted. 08/31: Patient is doing good. CIWA score 1. 2. Chronic use of kratom on Suboxone: Continued 08/31: As per patient request, buprenorphine 2 mg sublingual ordered 3. Denies smoking or other substance use. 4. DVT prophylaxis, low risk: No prophylaxis indicated. Early ambulation encouraged. Living will/advanced directive/end of life care: Patient does not have living will or advanced directive. He does not have DailyD power of employment attorney for health after discussion of benefits/risks procedures involved with full code, DNR CC arrest and DNR CC, the patient opted for full code. Patient does want artificial life support including intubation, tube feed, ventilator and/chest compression, central venous catheter, vasopressor and DC shock if needed Charges/Coding Visit Charges Inpatient E&M: 77873 Subs Hosp L2
[2025-08-31 14:03] VITALS: BP 113/75; PULSE 81; RESP 14; TEMP 36.6; O2SAT 98
[2025-08-31 21:16] VITALS: BP 127/94; PULSE 73; RESP 18; TEMP 37.1; O2SAT 100
[2025-08-31] MEDS: PIMOZIDE 2 MG TABLET PO (21:21)
[2025-09-01 03:11] VITALS: BP 102/70; PULSE 76; RESP 18; TEMP 36.4; O2SAT 96
[2025-09-01 10:03] VITALS: BP 115/82; PULSE 88; RESP 16; TEMP 36.8; O2SAT 100
--- NOTE | 2025-09-01 10:21 | TREXTCAR_ITS ---
Diet Diet Order/Speech Therapy: INPATIENT Hospital Diet / Speech Therapy Order(s) 08/30/25 18:03 Diet: Regular - General Food consistency:: Regular Liquid Consistency:: Regular/Thin Diet Comments: With snacks three times daily as tolerated Problem/Diagnosis (1) Alcohol withdrawal syndrome: Status: Acute Code(s): F10.939 - Alcohol use, unspecified with withdrawal, unspecified Plan This is a 44 old gentleman with history of chronic alcohol use and dependence and relapse came to ED for alcohol detox 1. Mild acute alcohol withdrawal syndrome with history of chronic alcohol use dependence, tolerance and relapse: The patient is being admitted to [facility] floor. Patient on phenobarbital based order set along with other adjunctive medications gabapentin, Bentyl, Vistaril, clonidine, Klonopin as needed for alcohol withdrawal symptom control. Patient is on thiamine and folate acid. CIWA monitor. assistant brand manager 180 consulted. 08/31: Patient is doing good. CIWA score 1. 2. Chronic use of kratom on Suboxone: Continued 08/31: As per patient request, buprenorphine 2 mg sublingual ordered 3. Denies smoking or other substance use. 4. DVT prophylaxis, low risk: No prophylaxis indicated. Early ambulation encouraged. Living will/advanced directive/end of life care: Patient does not have living will or advanced directive. He does not have DailyD power of bankruptcy attorney for health after discussion of benefits/risks procedures involved with full code, DNR CC arrest and DNR CC, the patient opted for full code. Patient does want artificial life support including intubation, tube feed, ventilator and/chest compression, central venous catheter, vasopressor and DC shock if needed Allergies/Procedures Done in Hospital Allergies No Known Allergies Allergy (Verified 08/30/25 15:06) Discharge Plan Admission Admit Date/Time: 08/30/25 17:14 Attending Provider: Tonio Almanza Primary Care Provider: Care Physician,Deneen Primary Discharge Orders/Prescriptions Prescriptions: New thiamine HCl (vitamin B1) 100 mg Tablet 100 mg PO DAILYCM 30 Days Qty: 30 0RF folic acid 1 mg Tablet 1 mg PO BREAKFAST 30 Days Qty: 30 2RF Continued ibuprofen [Advil] 200 mg tablet 200 mg PO Q6H PRN (Reason: pain) buspirone 15 mg tablet 30 mg PO BID buprenorphine-naloxone 8-2 mg film 1 ea sublingual DAILY Rx Instructions: PT STATES HE IS CUTTING THE FILMS AND TAKING APPX 1MG/2 PER DAY Trintellix 10 mg tablet 10 mg PO DAILY trazodone 100 mg tablet 100 mg PO QHS gabapentin 300 mg capsule 600 mg PO TID pimozide 2 mg tablet 2 mg PO QHS hydroxyzine pamoate 25 mg Capsule 50 mg PO QHS PRN (Reason: mild anxiety) quetiapine 50 mg tablet 150 mg PO QHS melatonin 5 mg capsule 5 mg PO QHS Referrals / Follow Up: Care Physician,No Primary [Primary Care Provider, Medical] NOT,DEFINED [Non-Staff, None] Disposition Disposition (needs filled in before D/C Order can be placed): Home, Self Care
--- NOTE | 2025-09-01 10:26 | DCINST_ITS ---
Discharge Instructions DC O2, CPAP, BIPAP needs Home O2 Discharge instructions: No Dressing / Incision Discharge Activity: Return to Normal Activity Weight Bearing Status: Weight bearing as tolerated Dressing / Incision Call your doctor if you observe: Fever of 101 or Higher, Coldness, Increased Pain, Numbness or Tingling, Change in Color, Inability to urinate, Inability to have a bowel movement, Shortness of breath, Dizziness, Fainting spells, Swelling in the ankles, Chest pain, Prolonged hiccupping, Increased palpitations (irregular heartbeat) and Calf discomfort Follow Up Care When: IN 2 WEEKS Test Results: Test results from this visit will be discussed in further detail at your follow- up appointment, if applicable. Discharge Plan Admission Admit Date/Time: 08/30/25 17:14 Attending Provider: Tonio Almanza Primary Care Provider: Mallory PhysicianeDneen Primary Discharge Orders/Prescriptions Prescriptions: New thiamine HCl (vitamin B1) 100 mg Tablet 100 mg PO DAILYCM 30 Days Qty: 30 0RF folic acid 1 mg Tablet 1 mg PO BREAKFAST 30 Days Qty: 30 2RF Continued ibuprofen [Advil] 200 mg tablet 200 mg PO Q6H PRN (Reason: pain) buspirone 15 mg tablet 30 mg PO BID buprenorphine-naloxone 8-2 mg film 1 ea sublingual DAILY Rx Instructions: PT STATES HE IS CUTTING THE FILMS AND TAKING APPX 1MG/2 PER DAY Trintellix 10 mg tablet 10 mg PO DAILY trazodone 100 mg tablet 100 mg PO QHS gabapentin 300 mg capsule 600 mg PO TID pimozide 2 mg tablet 2 mg PO QHS hydroxyzine pamoate 25 mg Capsule 50 mg PO QHS PRN (Reason: mild anxiety) quetiapine 50 mg tablet 150 mg PO QHS melatonin 5 mg capsule 5 mg PO QHS Referrals / Follow Up: Care Physician,No Primary [Primary Care Provider, Medical] NOT,DEFINED [Non-Staff, None] Disposition Disposition (needs filled in before D/C Order can be placed): Home, Self Care
--- NOTE | 2025-09-01 10:26 | DS.PCM_ITS ---
Providers Date of Admission: 08/30/25 Date of Discharge: 09/01/25 Primary Care Physician: No Primary Care Phys Reason For Visit: ACUTE ALCOHOL WITHDRAWL SYNDROME Diagnosis Discharge Diagnosis (1) Alcohol withdrawal syndrome: Status: Acute Code(s): F10.939 - Alcohol use, unspecified with withdrawal, unspecified Plan This is a 44 old gentleman with history of chronic alcohol use and dependence and relapse came to ED for alcohol detox 1. Mild acute alcohol withdrawal syndrome with history of chronic alcohol use dependence, tolerance and relapse: The patient is being admitted to [facility] floor. Patient on phenobarbital based order set along with other adjunctive medications gabapentin, Bentyl, Vistaril, clonidine, Klonopin as needed for alcohol withdrawal symptom control. Patient is on thiamine and folate acid. CIWA monitor. intellectual property manager 180 consulted. 08/31: Patient is doing good. CIWA score 1. 09/01: Patient not having any withdrawal symptoms. CIWA score is 0. Patient states he has to go to [place] for his job. Discharged on thiamine and folic acid. 180 rehab help offered but he declined. 2. 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 3. Denies smoking or other substance use. 4. DVT prophylaxis, low risk: No prophylaxis indicated. Early ambulation encouraged. Living will/advanced directive/end of life care: Patient does not have living will or advanced directive. He does not have DailyD power of litigation attorney associate for health after discussion of benefits/risks procedures involved with full code, DNR CC arrest and DNR CC, the patient opted for full code. Patient does want artificial life support including intubation, tube feed, ventilator and/chest compression, central venous catheter, vasopressor and DC shock if needed Medications at Discharge Home Medications ibuprofen 200 mg tablet (Advil) 200 mg PO Q6H PRN pain 11/14/22 melatonin 5 mg capsule 5 mg PO QHS sleep 05/22/24 buprenorphine 8 mg-naloxone 2 mg sublingual film 1 ea sublingual DAILY SUBSTANCE ABUSE 08/30/25 buspirone 15 mg tablet 30 mg PO BID 08/30/25 gabapentin 300 mg capsule 600 mg PO TID 08/30/25 hydroxyzine pamoate 25 mg capsule 50 mg PO QHS PRN mild anxiety 08/30/25 pimozide 2 mg tablet 2 mg PO QHS 08/30/25 quetiapine 50 mg tablet 150 mg PO QHS 08/30/25 trazodone 100 mg tablet 100 mg PO QHS 08/30/25 vortioxetine 10 mg tablet (Trintellix) 10 mg PO DAILY 08/30/25 folic acid 1 mg tablet 1 mg PO BREAKFAST 30 days #30 tabs 09/01/25 thiamine HCl (vitamin B1) 100 mg tablet 100 mg PO DAILYCM 30 days #30 tabs 09/01/25 Physical Exam Narrative No acute events overnight. Denies acute withdrawal symptoms. Physical exam General: Alert, Oriented x3, Cooperative HEENT: Atraumatic, PERRLA, EOMI, Normocephalic. Oral: No Gingival or Mucosal Lesions/ Ulcerations Neck: Supple, No JVD, Negative Carotid Bruits Chest wall/Lungs: Air entry equal in bilateral lung bases. No crepitation/rhonchi Cardiovascular: Regular rate and rhythm, Normal S1,S2, No M/G/R Abdomen: Bowel Sounds Present, Soft, Non Tender, Non-Distended : No dysuria. No renal angle tenderness. No suprapubic tenderness. Extremities: No edema, Capillary Refill Less than 3 Seconds Skin: No rashes, No breakdown Musculoskeletal: No Tenderness to Palpation of Joints or Extremities Neurological: Cranial nerves II-XII grossly intact, DTR 2+/4. No acute focal neurological deficit. Psych/Mental Status: Normal Affect, Appropriate. No tremors. No hallucination Weight / BMI Weight Weight: 162 lb 7.691 oz Body Mass Index (BMI) 22.0 ABG / Lab / Microbiology Data 08/30/25 15:20 08/31/25 04:07 D/C Instructions Weight Bearing Status: Weight bearing as tolerated Call your doctor if you observe: Fever of 101 or Higher, Coldness, Increased Pain, Numbness or Tingling, Change in Color, Inability to urinate, Inability to have a bowel movement, Shortness of breath, Dizziness, Fainting spells, Swelling in the ankles, Chest pain, Prolonged hiccupping, Increased palpitations (irregular heartbeat) and Calf discomfort DC O2, CPAP, BIPAP Needs Home O2 Discharge instructions: No When: IN 2 WEEKS Meaningful Use Info Meaningful Use Meaningful Use Diagnoses (Choose all that apply): None applicable Discharge Plan Admission Admit Date/Time: 08/30/25 17:14 Attending Provider: Tonio Almanza Primary Care Provider: Deneen Vela Primary Discharge Orders/Prescriptions Prescriptions: New thiamine HCl (vitamin B1) 100 mg Tablet 100 mg PO DAILYCM 30 Days Qty: 30 0RF folic acid 1 mg Tablet 1 mg PO BREAKFAST 30 Days Qty: 30 2RF Continued ibuprofen [Advil] 200 mg tablet 200 mg PO Q6H PRN (Reason: pain) buspirone 15 mg tablet 30 mg PO BID buprenorphine-naloxone 8-2 mg film 1 ea sublingual DAILY Rx Instructions: PT STATES HE IS CUTTING THE FILMS AND TAKING APPX 1MG/2 PER DAY Trintellix 10 mg tablet 10 mg PO DAILY trazodone 100 mg tablet 100 mg PO QHS gabapentin 300 mg capsule 600 mg PO TID pimozide 2 mg tablet 2 mg PO QHS hydroxyzine pamoate 25 mg Capsule 50 mg PO QHS PRN (Reason: mild anxiety) quetiapine 50 mg tablet 150 mg PO QHS melatonin 5 mg capsule 5 mg PO QHS Referrals / Follow Up: Care Physician,No Primary [Primary Care Provider, Medical] NOT,DEFINED [Non-Staff, None] Disposition Disposition (needs filled in before D/C Order can be placed): Home, Self Care Charges/Coding Visit Charges Inpatient E&M: 90489 Disch Hosp >30min
--- NOTE | 2025-09-01 10:51 | PHA.DC.MR.R ---
Pharmacy CT Med Reconciliation Pharmacy Service has performed discharge medication reconciliation for this patient. The patient's discharge medication list was reviewed for discrepancies and discrepancies were resolved. Medications at Discharge Home Medications ibuprofen 200 mg tablet (Advil) 200 mg PO Q6H PRN pain 11/14/22 melatonin 5 mg capsule 5 mg PO QHS sleep 05/22/24 buprenorphine 8 mg-naloxone 2 mg sublingual film 1 ea sublingual DAILY SUBSTANCE ABUSE 08/30/25 buspirone 15 mg tablet 30 mg PO BID 08/30/25 gabapentin 300 mg capsule 600 mg PO TID 08/30/25 hydroxyzine pamoate 25 mg capsule 50 mg PO QHS PRN mild anxiety 08/30/25 pimozide 2 mg tablet 2 mg PO QHS 08/30/25 quetiapine 50 mg tablet 150 mg PO QHS 08/30/25 trazodone 100 mg tablet 100 mg PO QHS 08/30/25 vortioxetine 10 mg tablet (Trintellix) 10 mg PO DAILY 08/30/25 folic acid 1 mg tablet 1 mg PO BREAKFAST 30 days #30 tabs 09/01/25 thiamine HCl (vitamin B1) 100 mg tablet 100 mg PO DAILYCM 30 days #30 tabs 09/01/25
== END 2025-09-01 10:55 | disposition home or self-care (01) ==
LOC: ED 17:04 → MS3 17:57
PROVIDERS: Admitting Provider Internal Medicine; Emergency Provider Emergency Medicine; Visit Provider Internal Medicine
DX: F10.239 Alcohol dependence with withdrawal, unspecified (principal); F19.99 Other psychoactive substance use, unspecified with unspecified psychoactive substance-induced disorder; F32.A Depression, unspecified; F41.9 Anxiety disorder, unspecified; Z87.891 Personal history of nicotine dependence; Z79.899 Other long term (current) drug therapy; Y90.0 Blood alcohol level of less than 20 mg/100 ml; I10 Essential (primary) hypertension
CPT/HCPCS: 36415; 80053; 80307; 81001; 82077; 82803; 85025; 85610; 96361; 96374; 99221; 99284; A4216; G0378